=== PATIENT | male | born 1945 | race Caucasian/White ===

== ENCOUNTER 2016-09-25 03:52 | Inpatient (IN) ==
[2016-09-25] MEDS ORDERED: XYLOCAINE 2%/EPI 1:100,000 ONE (04:04)
[2016-09-25] MEDS ORDERED: XYLOCAINE-MPF 2% INJ ONE (04:43)
[2016-09-25] MEDS ORDERED: XYLOCAINE 1% INJ ONE (04:45)
[2016-09-25] MEDS ORDERED: XYLOCAINE 1% ONE (04:47)
[2016-09-25] MEDS ORDERED: MORPHINE IV ONE (05:22)
[2016-09-25] MEDS ORDERED: ZOFRAN IV ONE (05:23)
[2016-09-25] MEDS ORDERED: NS 1,000 ML IV SCH (05:27)
[2016-09-25] MEDS ORDERED: KEFZOL 1 GM/D5W 1 GM/50 ML IVPB IV ONE (05:29)
--- NOTE | 2016-09-25 05:34 | EKG Report ---
Test Performed on : 09/25/2016 05:25:20 AM Test Reason : CP Blood Pressure : / mmHG Vent. Rate : 107 BPM Atrial Rate : 117 BPM P-R Int : 000 ms QRS Dur : 090 ms QT Int : 318 ms P-R-T Axes : 000 -03 234 degrees QTc Int : 424 ms Undetermined rhythm Inferior infarct , age undetermined Possible Anterior infarct , age undetermined Abnormal ECG No previous ECGs available Unconfirmed Result
[2016-09-25 05:59] LABS: MANUAL DIFF NEEDED? NO
[2016-09-25 06:11] LABS: BASO% 0.5 % (0.0-0.8); EOS# 0.06 X1000 (0.0-0.7); EOS% 0.9 % (0.0-10.0); HEMATOCRIT 32.8 % (42.0-52.0); HEMOGLOBIN 10.6 g/dL (14.0-18.0); IMM GRAN# 0.07 X1000 (0.0-0.04); IMM GRAN% 1.1 % (0.0-0.5); LYMPH# 0.79 X1000 (1.2-3.4); LYMPH% 12.3 % (20.5-51.1); MCH 31.1 PG (27-31); MCHC 32.3 g/dL (33-37); MCV 96.2 FL (81-99); MONO# 0.48 X1000 (0.11-0.59); MONO% 7.5 % (1.7-9.3); NEUT% 77.7 % (42.2-75.2); PLT 272 X1000 (130-400); RBC 3.41 XMIL (4.7-6.1)
[2016-09-25 06:30] LABS: AGAP 9; ALBUMIN 3.5 g/dL (3.5-5.0); ALKALINE PHOSPHATASE 80 U/L (32-122); BUN 18 mg/dL (8-22); CALCIUM 8.8 mg/dL (8.8-10.2); CHLORIDE 108 mmol/L (98-107); COSMO 285; GOT 20 U/L (10-34); GPT 25 U/L (10-44); POTASSIUM 3.9 mmol/L (3.5-5.1); SODIUM 141 mmol/L (136-145); TCO2 24 mmol/L (25-35); TOTAL BILIRUBIN 0.52 mg/dL (0.20-1.00); TOTAL PROTEIN 6.1 g/dL (6.3-8.3)
--- NOTE | 2016-09-25 07:37 | Diag Imaging Result Doc PS360 ---
KNEE 3 VIEWS RIGHT - 09/25/2016 INDICATION: fall TECHNIQUE: COMPARISON: None FINDINGS: No definite fractures. There is moderate vascular calcification of the popliteal artery and its branches compatible with peripheral arterial disease. No joint effusion. There is some degenerative narrowing of the medial and patellofemoral joint spaces. There is also some mild prepatellar soft tissue swelling. IMPRESSION: Nonspecific findings. Electronically signed by Jerman Desia 09/25/2016 7:35 AM
--- NOTE | 2016-09-25 08:32 | PROVIDER DOCUMENTATION ---
HPI-Musculoskeletal Pain/Inj - GENERAL Chief Complaint: Fall Stated Complaint: FALL/ EAR INJURY Time Seen by Provider: 09/25/16 06:45 Source: patient, EMS - HX OF PRESENT ILLNESS-MUSKULOSKELTAL Nature of Presenting Problem: 71 yo WM apparently fell at, maybe a syncopal episode. He is a poor historian but I understand lives with his who is disabled and his daughter lives next door. Quality of Pain: reports: sharp, throbbing Severity in ED: moderate Onset/Duration: just prior to arrival Timing: still present Modifying Factors: improves with: nothing Any recent injury?: Yes Locality of Occurance: Home Similar Symptoms Previously?: No Recently seen or treated by another doctor?: No - FALL INJURY Location of Pain/Injury: reports: head, lower extremity Pain Radiation: reports: no radiation, arm(s) Reason for Fall: reports: fainted Symptoms prior to fall:: reports: none Loss of Consciousness: dazed Injury Associated Symptoms: denies: shortness of breath, sensory/motor loss, snap/crack/pop sensation - LOWER EXTREMITY PAIN/INJURY Lower Extremities Pain: knee: right (very painful) Context / Method of Injury: reports: fell Review of Systems - Adult - REVIEW OF SYSTEMS - ADULT Constitutional: reports: no symptoms reported Eyes: reports: no symptoms reported Ears, Nose, Mouth & Throat: reports: see HPI, ear discharge, ear pain Cardiovascular: reports: no symptoms reported, other (known to have) Respiratory: reports: no symptoms reported Gastrointestinal: reports: no symptoms reported Genitourinary: reports: no symptoms reported Musculoskeletal: reports: see HPI Integumentary: reports: see HPI Psychiatric: reports: no symptoms reported Past History - Adult - PAST MEDICAL HISTORY-ADULT Review of Records: reports: Old Records Reviewed, Nursing Assessment Review, Medications Reviewed Physical Exam-Injury Related - Physical Exam-Injury Related Initial Vital Signs Reviewed: Yes General Appearance: alert, mild distress, thin Eyes: PERRL/EOMI Head, Ears, Nose, Mouth & Throat: pharynx normal, hearing deficit, other (right ear with multiple lacerations and arterial bleed whic h was controlled with epinephrine and pressure followed by suturing). negative: normocephalic/ atraumatic, angioedema, dental decay Neck: non-tender, full range of motion, supple Respiratory: chest non-tender, lungs clear, normal breath sounds Cardiovascular: normal peripheral pulses, no JVD, irregularly irregular. negative: no edema Abdominal Exam: normal bowel sounds, non tender, soft Male Genitalia: deferred Rectal Exam: deferred Lymphatic: no adenopathy Extremity: no calf tenderness, deformity, joint effusion, swelling. negative: normal range of motion Integumentary: contusion(s), laceration Neurologic: grossly normal - Glascow Coma Score [place] Total: 15 Progress - PLAN OF CARE/RESULTS Progress/Plan/Lab Results: Vital Signs - 8 hr 09/25/16 06:53 09/25/16 10:06 Temperature 97.6 F Pulse Rate 86 99 H Respiratory Rate 18 20 Blood Pressure 152/104 149/77 O2 Sat by Pulse Oximetry 98 97 Laboratory Results - last 24 hr 09/25/16 09/25/16 09/25/16 05:50 05:50 05:50 WBC 6.41 RBC 3.41 L Hgb 10.6 L Hct 32.8 L MCV 96.2 MCH 31.1 H MCHC 32.3 L RDW Std Deviation 15.4 H Plt Count 272 MPV 11.0 H Immature Gran % (Auto) 1.1 H Neut % (Auto) 77.7 H Lymph % (Auto) 12.3 L [place] % (Auto) 7.5 Eos % (Auto) 0.9 Baso % (Auto) 0.5 Immature Gran # (Auto) 0.07 H Neut # (Auto) 4.98 Lymph # (Auto) 0.79 L [place] # (Auto) 0.48 Eos # (Auto) 0.06 Baso # (Auto) 0.03 Sodium 141 Potassium 3.9 Chloride 108 H Carbon Dioxide 24 L Anion Gap 9 BUN 18 Creatinine 0.7 Estimated GFR/1.73 m2 > 60 BUN/Creatinine Ratio 26 Glucose 123 H Calculated Osmolality 285 Calcium 8.8 Total Bilirubin 0.52 AST 20 ALT 25 Alkaline Phosphatase 80 Troponin T < 0.010 Total Protein 6.1 L Albumin 3.5 Globulin 2.6 Albumin/Globulin Ratio 1.3 Orders Category Date Time Status Knee Immobilizer .right Care 09/25/16 05:28 Active HEAD W/O CONTRAST [CT] Stat Exams 09/25/16 08:04 Completed KNEE 3 VIEWS RIGHT [RAD] Stat Exams 09/25/16 04:52 Completed CBC WITH ELECTRONIC DIFF [HEME] Stat Lab 09/25/16 05:50 Completed COMPREHENSIVE METABOLIC PANEL [CHEM] Stat Lab 09/25/16 05:50 Completed TROPONIN T Stat Lab 09/25/16 05:50 Completed 0.9% Sodium Chloride Inj [Ns] 1,000 ml Med 09/25/16 05:27 Active IV 200 mls/hr Cefazolin 1 gm/D5w [Kefzol 1 gm/D5w] Med 09/25/16 05:29 Discontinued 1 gm in 50 ml IV NOW Cocaine 4% Topical Soln Med 09/25/16 10:15 Discontinued 4 ml TOP NOW ONE Lidocaine 1% [Xylocaine 1%] Med 09/25/16 04:47 Discontinued 20 ml .ROUTE .STK-MED ONE Lidocaine 1% [Xylocaine 1%] Med 09/25/16 04:45 Discontinued 20 ml INJ NOW ONE Lidocaine 2% Pf [Xylocaine-Mpf 2%] Med 09/25/16 04:43 Discontinued 5 ml INJ NOW ONE Lidocaine 2%/Epi 1:100,000 [Xylocaine 2%/Epi 1:100,000] Med 09/25/16 04:04 Discontinued 20 ml .ROUTE .STK-MED ONE Morphine Med 09/25/16 05:22 Discontinued 4 mg IV NOW ONE Ondansetron [Zofran] Med 09/25/16 05:23 Discontinued 4 mg IV NOW ONE EKG [EKG] Stat Ther 09/25/16 05:27 Draft Much improved , awaiting rifle case repairer and reevalluation of ear bleeding Result Diagrams: 09/25/16 05:50 09/25/16 05:50 - REASSESSMENT Reassessment #1 Time Reassessed: 11:26 Status: other (followed labored and serial efforts to achieve a satisactory agreement between pt and family as well as the showcase trimmer and long term care social worker, the patient agreed to admission for planned transfer to rehab and likely eventual long-term residential care.) - CHANGE OF SHIFT REPORT (ED Provider) Report Given and Care Transferred to:: Dr Johnson Items Pending: CT/MRI Results, Other (rifle case repairer) Procedures - LACERATION/WOUND REPAIR/FB Right Ear Wound Location: Other: 3 cm Wound's Depth, Shape: superficial Wound Explored/Foreign Body: contaminated moderately, no foreign body found Irrigated with Saline?: Yes Prepped with: Hibiclens Anesthetic: 2%, Lidocaine/Xylocaine Volume of Anesthetic (ml's): 7 Wound Debrided: minimal Wound Repaired with: Sutures Suture Size/Type: 5.0, Nylon Number of Sutures: 11 Number Deep Layer Sutures: 0 Sterile Dressing Applied?: Yes Post Procedure Neurovascular Exam: Abnormal (I was asked to re-evaluate the prior repair of the auricle of the pt' R ear as the nurse noted cont'd saturation of a pressure dressing (Coban turban) w/ blood X 2 changes: upon inspection w/ headlamp and Henley suction, there was a small lac at the junction of the inferior andrey with the antitragus. I applied a 4% cocaine impregnated cotton pack to the area of bleeding and held pressure for a minute, resulting in apparent excellent hemostasis. I removed the first such 'pack' and repeated the procedure with a 2nd otherwise identical pack, and another turban was placed atop this area. we will observe for persistence of the current satisfactory hemostasis.) Procedure Comment: oozing continues Departure - Departure Date of Disposition Decision: 09/25/16 Time of Disposition Decision: 12:11 DIAGNOSIS: Closed head injury, Laceration of right pinna, Frequent falls Disposition: ADMITTED INPATIENT 09 Certified Medical Emergency: Emergent Condition: Fair Referrals and Follow-Ups: None,PCP [Clinical Support] - - Critical Care Note This patient required my direct & personal management of CC.: No
--- NOTE | 2016-09-25 08:41 | Diag Imaging Result Doc PS360 ---
EXAM: HEAD W/O CONTRAST TECHNIQUE: INDICATION: fall COMPARISON: None. FINDINGS: There is diffuse brain atrophy with ventriculomegaly. There is mild patchy periventricular low-attenuation suggesting mild microangiopathy. There is no definite acute infarct given the limited sensitivity of CT versus MRI. There is no discrete intracranial mass, mass effect, or intracranial hemorrhage. The surrounding soft tissues and bony structures are essentially unremarkable. IMPRESSION: Chronic appearing intracranial changes as described. No definite acute intracranial pathology. Electronically signed by Ziggy Cooper 09/25/2016 8:39 AM
[2016-09-25] MEDS ORDERED: COCAINE 4% TOP ONE (10:15)
--- NOTE | 2016-09-25 14:19 | HISTORY AND PHYSICAL ---
PRIMARY CARE PROVIDER: Dr. Nahed Delaney. CHIEF COMPLAINT: Fall. HISTORY OF PRESENT ILLNESS: Mr. Jorge Fitzpatrick is an ill-appearing 71-year- old male. He is currently in no acute distress. He has a medical history of chronic atrial fibrillation on aspirin. He has had also several TIA's, hypertension, GERD and venous stasis, who apparently was found down on the floor at home by his daughter. When questioning the patient, he states that he passed out. He had no sensation that he was going to pass out; he just woke up with blood. When he presented to the ER, he has an atrial fibrillation rhythm with a tachycardic rate and a head CT that was performed which revealed chronic changes and no acute findings. He did have a right ear laceration that was sutured. Apparently he has had several falls in the past. The patient states they had one about 3 days ago where he had passed out. According to family, in July he was at [facility] and returned home with home health. Vital signs have been stable here. Will admit for further workup of syncopal spell. PAST MEDICAL HISTORY: 1. Chronic atrial fibrillation. 2. Hypertension. 3. GERD. 4. Venous stasis with lower extremity swelling. 5. Several TIA's. SURGICAL HISTORY: Bilateral wrist surgeries, jaw surgery and polypectomy. SOCIAL HISTORY: He was a 3 [id number] smoker for 10-15 years, quit in the early 1980s. Denies alcohol and illicit drug use. He lives at home with his and his daughter lives next door. He uses a walker at home. He and his moved to [place] approximately 2 years ago. FAMILY HISTORY: None. REVIEW OF SYSTEMS: Fourteen point review of systems were complete and all were negative, except for those mentioned above in the HPI. He did state that he has a hard time moving his right leg and has more swelling. ALLERGIES: No known drug allergies. HOME MEDICATIONS: Lopressor 25 mg p.o. daily. PHYSICAL EXAMINATION: VITAL SIGNS: Temperature is 97.5 degrees, heart rate 99 irregular, blood pressure 149/77, saturation 97% on room air with a respiratory rate of 20. The patient is 6 foot inches tall, 212 pounds. BMI 28.8. GENERAL: Mr. Jorge Fitzpatrick is a 71-year-old male. He is in no acute distress and he is answering most questions appropriately, but is slow responding. HEENT: Right earlobe laceration approximately 3 cm in length, now with sutures and hemostasis has been achieved. Pupils are equal, reactive. Extraocular movements intact. Mucous membranes are dry. NECK: No JVD or carotid bruits noted. CARDIOVASCULAR: Irregularly irregular rate and rhythm. No rubs, gallops, murmurs. PULMONARY: Clear to auscultation. Bilateral breath sounds. No accessory muscle use or work of breathing noted. GI: Soft, nontender, nondistended. Positive bowel sounds x4. EXTREMITIES: Bilateral lower extremity edema about +2. He has +2 to +3 dorsalis pedal pulses and + 2 radial pulses. NEUROLOGIC: Oriented x3. He moved all extremities equally, but weak. He is 4/ 5 in strength. SKIN: Warm, dry, intact except for the right earlobe laceration and abrasion on the right scalp. He also has bilateral knee abrasions. LABORATORY DATA: White blood cells 6000, hemoglobin 10, hematocrit 32, platelet count 272. Sodium 141, potassium 3.9, BUN 18, creatinine 0.7, glucose 123, bilirubin 0.52. AST 20, ALT 25, troponin less than 0.01. Protein 6.1. IMAGING: Head CT: Diffuse brain atrophy with ventriculomegaly. There is mild patchy ventricular low attenuation suggesting mild micro and ángel angiopathy. There is no definite acute infarct given the limited CT versus MRI. There is no discrete intracranial mass, mass effect or intracranial hemorrhage. The surrounding soft tissues and bony structures are essentially unremarkable. EKG is said to have undetermined rhythm, but reviewing it looks like atrial fibrillation with a rate of 107 and QTc is 424. X-ray of the right knee shows peripheral arterial disease. ASSESSMENT AND PLAN: 1. Syncope. Will do echocardiogram and carotid ultrasound. Will do orthostatics every 12 hours and consult cardiology. 2. Atrial fibrillation with mild rapid ventricular response, currently not on anticoagulation. It appears that he is on a beta brittany at home. Cardiology will be following. 3. Hypertension. He is hypertensive. Will likely need to resume his beta brittany. 4. Gastroesophageal reflux disease. Will start a proton pump inhibitor. 5. Lower extremity venous stasis versus peripheral arterial disease. We will also get lower extremity venous ultrasound to rule out deep vein thromboses. 6. History of several transient ischemic attacks per the patient. He has been on aspirin therapy at home. 7. Deep venous thrombosis prophylaxis. Sequential compression devices and thromboembolic devices. 8. Right ear laceration stable at this time. Will leave open to air. Clean with sterile water and antibacterial soap. 9. Disuse myopathy, generalized weakness. Physical therapy has been ordered. Dictated by VIRGINIA Murry for Ariel Loaiza MD cc: VIRGINIA Murry MD pt developed afib with rvr, iv cardizem initiated , pt going to [facility], will follow closely [facility] MTDD
[2016-09-25] MEDS ORDERED: ZOFRAN IV PRN (14:39)
[2016-09-25] MEDS ORDERED: NS 1,000 ML IV PRN (14:39)
[2016-09-25] MEDS ORDERED: CARDIZEM IV ONE (14:44)
--- NOTE | 2016-09-25 15:13 | Diag Imaging Result Doc PS360 ---
EXAM: CHEST-PORTABLE HISTORY: dyspnea, cough TECHNIQUE: AP portable erect at 1510 COMMENT: There is ill-defined opacity obscuring the left heart border. There are no previous studies. IMPRESSION: Lingular pneumonia versus atelectasis. Electronically signed by Trevon Nguyen 09/25/2016 3:10 PM
[2016-09-25] MEDS: LANOXIN IV SCH ×2 (16:00→17:33)
[2016-09-25] MEDS: CARDIZEM 100 MG/NS 100 MG/100 ML IVPB IV SCH (16:29)
[2016-09-25] MEDS: TYLENOL PO PRN (16:38)
[2016-09-25 16:43] LABS: URINE SOURCE VOIDED
[2016-09-25 17:53] LABS: URINE MICRO REVIEW NEEDED? NO
[2016-09-25 17:56] LABS: BILIRUBIN URINE NEGATIVE (NEGATIVE); BLOOD URINE NEGATIVE (NEGATIVE); COLOR YELLOW; GLUCOSE URINE NEGATIVE (NEGATIVE); LEUKOCYTES URINE NEGATIVE (NEGATIVE); NITRITE URINE NEGATIVE (NEGATIVE); PH URINE 5.5; PROTEIN URINE NEGATIVE (NEGATIVE); SP GRAVITY URINE 1.015; TURBIDITY URINE CLEAR (CLEAR); UR EPITHELIAL CELLS <10 /HPF (<10); URINE BACTERIA NEGATIVE /HPF; URINE RBC <10 /HPF (<10); URINE WBC <10 /HPF (<10); UROBILINOGEN URINE NORMAL (NORMAL)
[2016-09-26] MEDS: CARDIZEM 100 MG/NS 100 MG/100 ML IVPB IV SCH ×2 (00:47→17:57)
[2016-09-26] MEDS: TYLENOL PO PRN ×2 (00:58→08:22)
[2016-09-26 05:15] LABS: MANUAL DIFF NEEDED? NO
[2016-09-26 05:29] LABS: BASO% 0.6 % (0.0-0.8); EOS# 0.13 X1000 (0.0-0.7); EOS% 2.4 % (0.0-10.0); HEMATOCRIT 29.4 % (42.0-52.0); HEMOGLOBIN 9.3 g/dL (14.0-18.0); IMM GRAN# 0.05 X1000 (0.0-0.04); IMM GRAN% 0.9 % (0.0-0.5); LYMPH# 0.85 X1000 (1.2-3.4); LYMPH% 15.9 % (20.5-51.1); MCH 30.5 PG (27-31); MCHC 31.6 g/dL (33-37); MCV 96.4 FL (81-99); MONO% 9.3 % (1.7-9.3); MPV 11.4 FL (7.4-10.4); NEUT% 70.9 % (42.2-75.2); PLT 254 X1000 (130-400); RBC 3.05 XMIL (4.7-6.1)
[2016-09-26 05:55] LABS: INR 1.07; PROTIME 11.3 Seconds (9.2-11.7); PTT 30.1 Seconds (22.0-36.0)
[2016-09-26 06:05] LABS: AGAP 7; ALBUMIN 3.2 g/dL (3.5-5.0); ALKALINE PHOSPHATASE 72 U/L (32-122); BUN 6 mg/dL (8-22); CALCIUM 8.7 mg/dL (8.8-10.2); CHLORIDE 108 mmol/L (98-107); COSMO 281; GOT 16 U/L (10-34); GPT 21 U/L (10-44); MAGNESIUM 1.8 mg/dL (1.5-2.7); POTASSIUM 3.7 mmol/L (3.5-5.1); SODIUM 142 mmol/L (136-145); TCO2 27 mmol/L (25-35); TOTAL BILIRUBIN 0.66 mg/dL (0.20-1.00); TOTAL PROTEIN 5.7 g/dL (6.3-8.3)
[2016-09-26] MEDS: PRILOSEC PO SCH (06:11)
--- NOTE | 2016-09-26 06:12 | EKG Report ---
Test Performed on : 09/26/2016 05:31:54 AM Test Reason : afib Blood Pressure : / mmHG Vent. Rate : 084 BPM Atrial Rate : 101 BPM P-R Int : 000 ms QRS Dur : 078 ms QT Int : 376 ms P-R-T Axes : 000 007 -22 degrees QTc Int : 444 ms Atrial fibrillation. with a competing junctional pacemaker. with premature ventricular or aberrantly conducted complexes. Nonspecific T wave abnormality Abnormal ECG When compared with ECG of 25-SEP-2016 13:15, (Unconfirmed) Vent. rate has decreased BY 49 BPM Confirmed by Chirag Chamberlain MD ([id number]) on 09/26/2016 1:02:44 PM
--- NOTE | 2016-09-26 10:54 | PROGRESS NOTE ---
DATE: 09/26/2016 SUBJECTIVE: Patient has no focal complaints. OBJECTIVE: Blood pressure 134/76, heart rate of 95, respiratory rate 18, temperature 97.8 degrees, 97% on 2 L. Cardiovascular: Regular rate and rhythm. Pulmonary: Bilateral breath sounds clear to auscultation. GI was soft, nontender, nondistended. Bowel sounds are positive. His right knee is swollen. LABORATORY DATA: Hemoglobin and hematocrit 9 and 29, white count 5, platelets 254,000. Coags okay. Basic was negative. IMPRESSION: Briefly, this is a 71-year-old male presenting with recurrent fall, syncope, and atrial fibrillation with rapid ventricular response.Problems: 1. Atrial fibrillation with rapid ventricular response. It appears to be rate controlled on cardiology. He will need anticoagulation retirement. He has got significant bruising and bleeding in his left knee, so we are holding on that for right now. 2. Hypertension appears to be stable. 3. Transient ischemic attack. He is on aspirin therapy. 4. Questionable pneumonia in left lower lobe. We will repeat his chest x-ray. Continue incentive spirometry and follow. DISPOSITION: Pending his clinical course. Possibly out of CIC today if he is stable off his Cardizem drip. cc: Ariel Loaiza MD
--- NOTE | 2016-09-26 11:13 | CONSULTATION ---
DATE OF CONSULTATION: 09/26/2016 REQUESTING PHYSICIAN: Hospitalist service. REASON FOR CONSULTATION: Patient with syncope, atrial fibrillation. HISTORY: Mr. Fitzpatrick is a 71-year-old male who has moved to the [place] area because of need for closer care by his daughter. The patient has suffered a syncopal episode at home and was brought to the hospital because of that. He suffered an ear laceration, and this has been treated in the emergency room. The patient denies having any chest pain, palpitations, shortness of breath. He says that he is unsteady on his feet, and he has suffered previous falls and also syncopal episodes. PAST HISTORY: Positive for hypertension. He has a history of atrial fibrillation. He apparently has suffered transient ischemic attacks. Gastric reflux. SURGICAL HISTORY: He has had bilateral wrist surgeries, jaw surgery, and polypectomy. SOCIAL HISTORY: He is , retired. He lives with his . However, she seems to have advanced dementia. Daughter lives next door. The patient has been a smoker of 3 packs a day for 15 years and quit in 1979. FAMILY HISTORY: He does not have any significant cardiac history in his family. ALLERGIES: Negative. HOME MEDICATIONS: At the time of presentation are metoprolol 25 daily and aspirin 81 mg daily. REVIEW OF SYSTEMS: Beyond what I have already reported is unremarkable. IMAGING: In the emergency room department, they did a head CT on him that shows chronic-appearing intracranial changes with diffuse brain atrophy, ventriculomegaly. The patient had a chest x-ray that showed possible lingular pneumonia versus atelectasis. BLOOD WORK: His blood work showed normal white count, low hemoglobin at 10.6 with normal MCV and slightly elevated RDW. Platelet count is normal. PTT is normal. Sodium, potassium normal. BUN and creatinine normal. Troponin normal. ProBNP was about 6 times baseline, 1333, normal is 229 for his age. Albumin is low at 3.2. PHYSICAL EXAMINATION: Vital signs: Blood pressure was 121/70, temperature 98.1. His pulse has slowed down from 127 to 95. His weight is 214 pounds. General: He is awake, arousable. He has bruises on the knees. He has a laceration on the ear that has been sutured and treated. His scalp is unremarkable otherwise. No deformities in the head. HEENT: Unremarkable. The patient is somewhat sluggish to respond. He seems to be oriented to place and person, not quite to time. Neck: Neck veins are not distended. No cervical bruits. Chest: Symmetrical breath sounds. I do not hear any rales. Cardiac: Heart sounds are slightly irregular. I do not hear any gallop or murmur. Abdomen: Soft. There are no masses or hepatomegaly. Extremities: Palpable posterior tibialis pulses. There is no edema. Neurological: He is somewhat sluggish. Some nonspecific tremor. Some stiffness in general. EKG: His EKG showed atrial fibrillation with occasional PVCs Rate is controlled. Nonspecific T wave flattening. IMPRESSION: 1. Patient who presents with recurrent syncope. 2. Patient with chronic atrial fibrillation, rapid response. This is improved with Cardizem. 3. Hypertension. 4. History of TIAs in the past. RECOMMENDATION: We will review the echocardiogram that has been done this morning. We will consider a neurology consultation. The patient may have high-pressure hydrocephalus. Further advice will be forthcoming. Thank you for the opportunity to participate in his evaluation. cc: Ruben Narvaez MD
[2016-09-26] MEDS: LOVENOX SUBQ SCH (11:48)
[2016-09-26] MEDS: NORCO-7.5 PO PRN ×2 (11:48→21:01)
[2016-09-26] MEDS: CARDIZEM PO SCH ×3 (11:48→21:01)
--- NOTE | 2016-09-26 12:49 | ECHO REPORT ---
ORDER DATE: 09/25/2016 MEASUREMENTS: 1. Left ventricular end-diastolic diameter 5.1 and 3.0. 2. Posterior wall thickness 1.3. 3. Septal thickness 1.3. 4. Left atrium 5.3. 5. Aortic root 3.6. SUMMARY: 1. Fair quality study. 2. Aortic valve is trileaflet and opens normally on 2-dimensional images. Mild mitral calcification is demonstrated. There is mild mitral regurgitation. Tricuspid and pulmonic valves are without structural abnormality with mild tricuspid regurgitation and mild pulmonic insufficiency. Estimated systolic PA pressure by Doppler is 20-25 mmHg. The aortic root is normal in size. 3. Normal left ventricular chamber size with mild concentric left hypertrophy is demonstrated. Estimated left ejection fraction appears to be at least 55%. No regional wall motion abnormality is evident. [id number] biatrial enlargement is demonstrated. Right ventricle is normal in size with normal right ventricular systolic function. 4. No pericardial effusion. 5. Appearance of inferior vena cava suggests normal central venous pressure. 6. Atrial fibrillation during the study. CONCLUSIONS: 1. Mild mitral regurgitation. 2. Mild tricuspid regurgitation with normal systolic PA pressure by Doppler. 3. Mild concentric left hypertrophy with estimated left ejection fraction at least 55%. 4. [id number] biatrial enlargement. 5. Atrial fibrillation. cc: MD Livier Esparza CRNP
--- NOTE | 2016-09-26 13:40 | Diag Imaging Result Doc PS360 ---
EXAM: CHEST-2 VIEWS HISTORY: hypoxia TECHNIQUE: COMPARISON: 09/25/2016 FINDINGS: The lungs are well expanded. Persistent tiny lingular infiltrate versus atelectasis. Right lung remains clear. Heart is borderline mildly prominent. No pleural effusions. IMPRESSION: Small lingular infiltrate versus atelectasis. Electronically signed by Car Phillips 09/26/2016 1:38 PM
--- NOTE | 2016-09-26 13:45 | Diag Imaging Result Doc PS360 ---
EXAM: MRI BRAIN W/O CONTRAST HISTORY: ataxia, apraxia, falls, syncope, right hemiparesis TECHNIQUE: Axial, sagittal, and coronal images obtained COMPARISON: CT from 09/25/2016 FINDINGS: No recent infarct. There is atrophy with chronic microvascular ischemic changes. Mild ventricular prominence. No mass or midline shift. No epidural or subdural fluid collection. IMPRESSION: Atrophy with chronic microvascular ischemic changes, but no recent infarct. Electronically signed by Car Phillips 09/26/2016 1:43 PM
--- NOTE | 2016-09-26 14:00 | CONSULTATION ---
DATE OF CONSULTATION: 09/26/2016 Mr. Fitzpatrick is 71 years old. He reports recent stumbling backward, walking backward and falling. He struck his head and had ear laceration which was closed. He believes he might have lost consciousness for just an instant but there was not protracted loss of consciousness. He reports developing some right-sided weakness about 5 years ago and that has been present since then, not fluctuating, not improving or deteriorating. He believes this was a "mini stroke", but he is not certain about details. He began to have unsteady gait with a tendency to stumble backward, to walk backwards, to bump into things behind him. He believes this started about 3 years ago and has been present since then, some days much worse than others. He has fallen about 6 times, by his report. Falls had not been associated with altered consciousness before yesterday. He has been able to get up without assistance on a few occasions when he did not have help. Falls were not associated with increased right-sided weakness or other new neurologic deficit. Falls were not associated with incontinence, by his report. One of his previous falls was also associated with scalp laceration. He has never had more serious injury associated with these falls. He began taking medicine to manage atrial fibrillation several years ago. He was switched from warfarin to daily aspirin within the last month or so. He had started metoprolol a few years ago and, in retrospect, he believes starting metoprolol roughly coincides with the time that he began to stumble. According to the hospital chart here, his only current medicines are aspirin and metoprolol. There is past history of atrial fibrillation, hypertension, GERD. Workup here includes noncontrast CT of the head showing prominent atrophy with ventriculomegaly and also prominent cortical atrophy. There were the typical chronic white matter ischemic changes. I do not see evidence of discrete infarction. Lab work showed slightly elevated blood sugar. ProBNP was 1333. He has been afebrile. He had heart rate recorded once 45, once 68, others 80s to 110s. He has had postural blood pressure checks with moderate systolic blood pressure drop on sitting or standing from supine position but not definitely remarkable. He has lived most of his life [place] and [place]. He has been in this area for recent years. I do not find any old record in this hospital chart. On exam, Mr. Fitzpatrick is awake, alert, attentive and appropriate. He seems a little bit hard of hearing but communicated very well. His voice is soft but not parkinsonian. Speech is not dysarthric. Language function is intact on bedside testing. Recent and remote memory are good. He scored 25 of 30 on bedside mini mental status exam. This score may not be completely valid because there was a good bit of commotion in the hallway during the interview. He registered 3 items easily and then could recall 2 of 3 items at 10 minutes. He did not pick the 3rd item from a multiple choice list. He interpreted a simile correctly but did not interpret a metaphor. He was able to name the President but could not discuss any recent news. He missed the day of the week by 1. He missed the day of the month by several days. He did not know the name of this hospital but he did know the name of the town and state. He has full visual holden tested by confrontational finger counting. His extraocular movements appear full laterally with slightly diminished upgaze typical for age. Pupils react to light (he reports having horizontal diplopia chronically since cataract procedure some years ago, but I could not document definite gaze palsy or extraocular movement abnormality. He did not report diplopia or other vision change with cover/uncover testing and he did not report diplopia with gaze ahead, gaze left or gaze right). Facial motility is diminished bilaterally. Gag is intact. Tongue is midline. Hearing is fair. Shoulder shrug is equal. Strength is normal in the left limbs. I can overcome the right deltoid, 4/5, iliopsoas 4+/5. Tone is a little bit increased in the right arm. He did rapid alternating movements well with both hands. He did well on finger-to- nose testing bilaterally. He reports diminished pinprick appreciation over the right lower leg compared to the left without distinct margins. He reports equal pinprick appreciation over the hands and over the face. Proprioception is normal at the great toe MTP joint bilaterally. Reflexes are absent at the ankles, 2+ at the left knee, uncertain at the right knee. Right knee is swollen and tender and he could not tolerate vigorous testing of right patellar reflex. His gait is wide-based, slightly ataxic. He had trouble placing his feet properly for heel-to-toe tandem walking. He did not demonstrate definite apraxia in the limited gait exam available, hindered by the IV pole, hospital bed and other obstacles. Romberg is absent. IMPRESSION: 1. His history sounds like apractic gait with retropulsion, stumbling backward and falling. He reports this has happened many times without falling and he has fallen several times. He does not have any other parkinsonian features. 2. Right hemiparesis. He reports this is chronic. 3. Horizontal diplopia. He reports this is chronic but is not present now. 4. Uncertain right knee reflex and possible diminished sensation distally in the right leg. He might have a peripheral neuropathy there but I do not think that explains his recent gait difficulty and I do not think that problem needs urgent attention. I will order a brain MRI to see if we can find evidence of an old left hemisphere infarction to account for his mild right hemiparesis. We also need to evaluate the brainstem in light of his reported diplopia and unsteady gait. He has had MRI before and had no problems tolerating that in the past. Other workup is in progress including carotid ultrasound. I am not certain about the reasons for recent decision to stop anticoagulation and switch to antiplatelet medicine. Certainly, his unsteady gait and falling is a contraindication to full anticoagulation. Thanks for asking me to see Mr. Fitzpatrick. cc: MD KARAN Glass III
[2016-09-27] MEDS: CARDIZEM PO SCH ×4 (02:44→20:38)
[2016-09-27 05:54] LABS: HEMATOCRIT 28.6 % (42.0-52.0); HEMOGLOBIN 9.1 g/dL (14.0-18.0); MCH 31.7 PG (27-31); MCHC 31.8 g/dL (33-37); MCV 99.7 FL (81-99); MPV 10.7 FL (7.4-10.4); RBC 2.87 XMIL (4.7-6.1)
[2016-09-27 06:09] LABS: AGAP 9; BUN 8 mg/dL (8-22); CALCIUM 8.3 mg/dL (8.8-10.2); CHLORIDE 107 mmol/L (98-107); COSMO 286; POTASSIUM 4.1 mmol/L (3.5-5.1); SODIUM 144 mmol/L (136-145); TCO2 28 mmol/L (25-35)
[2016-09-27] MEDS: PRILOSEC PO SCH (06:37)
[2016-09-27] MEDS: NORCO-7.5 PO PRN (07:20)
[2016-09-27] MEDS: LOVENOX SUBQ SCH (11:54)
[2016-09-27] MEDS: TYLENOL PO PRN (11:54)
--- NOTE | 2016-09-27 13:44 | PROGRESS NOTE ---
DATE: 09/27/2016 SUBJECTIVE: The patient has no focal complaints except the pain is still not completely controlled. OBJECTIVE: Vital signs: Blood pressure 117/61, heart rate 72, respiratory rate 72, temperature 97.9 degrees, 97% on room air. Cardiovascular: Irregular irregular. Pulmonary: Clear to auscultation bilaterally. GI: Soft, nontender, nondistended. Bowel sounds are positive. LABORATORY DATA: Hemoglobin and hematocrit is 9 and 28, white count 5, MCV 99, platelets 254,000. Coagulations okay. Basic is okay. Potassium 4.1. PROBLEM LIST: 1. Atrial fibrillation with rapid ventricular response. He seems to be rate controlled. I do think his CHADS2-VASc 2 is greater than 3 or at least 3 so he will qualify for long time anticoagulation, I am just holding it right now because of his recent hematomas and laceration of his ear but I would consider doing that alf of course at the discretion of cardiology. He does have frequent falls but I do not think this should preclude him from anticoagulation, not sure his frequent falls may not be related to atrial fibrillation and now that is controlled that may have improved. 2. Ataxia, diplopia. He had a MRI done yesterday which was negative for cerebrovascular accident. He is at risk for transient ischemic attacks which he has had numerous episodes of. We will initiate at least aspirin therapy and again I think he will need long-term anticoagulation once we feel it is safe enough to anticoagulate perhaps in about 7 days or within 7 days. 3. Anemia. Looks like it is macrocytic. Will check B12, folate levels and monitor. DISPOSITION: He may need inpatient rehab. We are pursuing PT consult. I think he is stable enough to go the floor. cc: Ariel Loaiza MD
[2016-09-27] MEDS: NORCO-10 PO PRN ×2 (14:23→20:38)
[2016-09-27] MEDS: ASPIRIN EC PO SCH (14:23)
--- NOTE | 2016-09-27 20:23 | PROGRESS NOTE ---
DATE: 09/27/2016 SUBJECTIVE: Patient continues without chest discomfort or dyspnea. He has no palpitations. OBJECTIVE: Vital Signs: Blood pressure 118/60, heart rate 80 and irregular. Neck: There is no significant jugular venous distention. Chest: Clear to auscultation. Cardiac Exam: Reveals an irregular rate and rhythm. No evidence of peripheral edema. DATA: Echocardiography indicates mild mitral regurgitation, mild concentric left hypertrophy with estimated left ejection fraction at least 55% and mild moderate biatrial enlargement. IMPRESSION: 1. Recurrent syncope with associated falls. 2. Chronic atrial fibrillation. 3. Hypertension. 4. Prior transient ischemic attacks in the past. RECOMMENDATIONS: 1. Continue to monitor on telemetry. 2. Consider ambulatory ECG monitoring 30 day event recorder as outpatient. 3. Neurology evaluation. 4. Continue current rate control regimen. cc: Dale Pichardo MD
[2016-09-28] MEDS: CARDIZEM PO SCH ×4 (01:43→20:44)
[2016-09-28] MEDS: PRILOSEC PO SCH (06:22)
[2016-09-28] MEDS: NORCO-10 PO PRN ×3 (06:23→20:44)
[2016-09-28 06:45] LABS: AGAP 14; BUN 9 mg/dL (8-22); CALCIUM 8.9 mg/dL (8.8-10.2); CHLORIDE 104 mmol/L (98-107); COSMO 284; HEMATOCRIT 32.3 % (42.0-52.0); HEMOGLOBIN 10.2 g/dL (14.0-18.0); MCH 31.5 PG (27-31); MCHC 31.6 g/dL (33-37); MCV 99.7 FL (81-99); MPV 11.1 FL (7.4-10.4); POTASSIUM 3.7 mmol/L (3.5-5.1); RBC 3.24 XMIL (4.7-6.1); SODIUM 143 mmol/L (136-145); TCO2 25 mmol/L (25-35)
[2016-09-28] MEDS: TYLENOL PO PRN (09:08)
[2016-09-28] MEDS: ASPIRIN EC PO SCH (09:08)
[2016-09-28] MEDS: LOVENOX SUBQ SCH ×2 (09:08→12:59)
--- NOTE | 2016-09-28 17:46 | PROGRESS NOTE ---
DATE: 09/28/2016 SUBJECTIVE: The patient says he feels like "crap" but he looks okay. No major complaints. OBJECTIVE: Vital signs: Blood pressure 136/65, heart rate of 58, respiratory rate 20, temperature degrees 98.2, 93% on room air. Cardiovascular: Regular rate and rhythm. Pulmonary: Bilateral breath sounds. Clear to auscultation. GI: Soft, nontender, nondistended. Bowel sounds are positive. Extremities: No clubbing or cyanosis. Lymphatics: No peripheral edema. Neurological: Nonfocal. LABORATORY DATA: White count 5, hemoglobin and hematocrit 10 and 32, platelets 287,000. Basic looked okay. Potassium 3.7. Folate low at 3.6. PROBLEM LIST: 1. Atrial fibrillation with rapid ventricular response with history of chronic atrial fibrillation. He is on aspirin and Cardizem, I believe. We will convert him to oral Cardizem. He is currently on 240 but maybe 180 will be sufficient. Again, I think he probably needs long-term anticoagulation but he is at risk for frequent falls. That being said, we will discuss with cardiology about long-term anticoagulation. 2. Anemia, macrocytic. Looks like he is folate deficient. We will supplement and follow. 3. Neuro with ataxia and diplopia. Neurology is following. There is no evidence of stroke. He certainly may have had a TIA. Again, I would consider aspirin plus anticoagulation or anticoagulation alone and follow. 4. Disposition. We are working on possible rehab. Patient does want to go home but I am not entirely sure he is stable enough to do that. So, we will pursue rehab is amenable. cc: Ariel Loaiza MD
[2016-09-29] MEDS: PRILOSEC PO SCH (06:00)
[2016-09-29] MEDS: ASPIRIN EC PO SCH (08:31)
[2016-09-29] MEDS: CARDIZEM CD PO SCH (08:31)
[2016-09-29] MEDS: NORCO-10 PO PRN ×2 (09:08→15:56)
[2016-09-29 10:06] LABS: HEMATOCRIT 34.9 % (42.0-52.0); HEMOGLOBIN 11.2 g/dL (14.0-18.0); MCH 30.9 PG (27-31); MCHC 32.1 g/dL (33-37); MCV 96.4 FL (81-99); MPV 10.7 FL (7.4-10.4); RBC 3.62 XMIL (4.7-6.1)
[2016-09-29 11:21] LABS: AGAP 14; BUN 7 mg/dL (8-22); CALCIUM 9.5 mg/dL (8.8-10.2); CHLORIDE 98 mmol/L (98-107); MAGNESIUM 1.8 mg/dL (1.5-2.7); POTASSIUM 3.8 mmol/L (3.5-5.1); SODIUM 139 mmol/L (136-145); TCO2 27 mmol/L (25-35)
[2016-09-29] MEDS: LOVENOX SUBQ SCH (11:28)
[2016-09-29 11:51] LABS: COSMO 278
--- NOTE | 2016-09-29 15:50 | PROGRESS NOTE ---
DATE: 09/29/2016 Mr. Fitzpatrick is a good bit brighter today. He reports he was able to walk with physical therapy assistance and he believes he did well with that. His MRI scan shows significant predominantly temporal and frontal atrophy. He reports not aware of any prior brain MRI and not aware of any prior brain diagnosis except the possibility of previous stroke causing right hemiparesis. His gait description sounds like apraxia with retropulsion. He does not have prominent feature of Parkinson's disease, but we might consider cautious levodopa trial. 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 He reports plans for discharge soon and I will arrange to see him in my office to consider levodopa and to follow hos gait problems and cognitive function. Thanks for asking me to see Mr. Fitzpatrick. cc: MD KARAN Glass III
[2016-09-29] MEDS ORDERED: HALDOL IM PRN (16:04)
--- NOTE | 2016-09-29 16:46 | PROGRESS NOTE ---
DATE: 09/29/2016 SUBJECTIVE: The patient is resting comfortably in bed. He complains of generalized aches and pain. OBJECTIVE: Vital Signs: Temperature 98.2 degrees, blood pressure 151/70, heart rate 97, respirations 20, O2 saturations 97% on room air. General Appearance: Generally, this is an elderly male, lying in bed, in no acute distress. Head: Normocephalic, atraumatic. Heart: S1, S2 normal. Tachycardic. Lungs: Equal air entry bilaterally. No crackles, no rales. Abdomen: Positive bowel sounds. Soft, nontender, nondistended. Extremities: No edema. No cyanosis. Neurological Examination: The patient is alert and oriented x3. LABS: Reviewed. ASSESSMENT AND PLAN: 1. Atrial fibrillation. Continue on Cardizem. Further recommendations to follow from the [facility]. 2. Folate deficiency. We will start the patient on folic acid replacement. 3. Ataxia. Continue with physical therapy. The patient may require rehab. 4. Suspected transient ischemic attack. Continue on aspirin. 5. Continue with physical therapy. cc: Nishi Julian MD
[2016-09-30] MEDS: NORCO-10 PO PRN ×2 (03:30→15:14)
[2016-09-30 06:00] LABS: MANUAL DIFF NEEDED? NO
[2016-09-30 06:03] LABS: BASO% 0.5 % (0.0-0.8); EOS# 0.13 X1000 (0.0-0.7); HEMATOCRIT 31.1 % (42.0-52.0); HEMOGLOBIN 9.8 g/dL (14.0-18.0); IMM GRAN# 0.05 X1000 (0.0-0.04); IMM GRAN% 0.8 % (0.0-0.5); LYMPH# 0.77 X1000 (1.2-3.4); LYMPH% 11.7 % (20.5-51.1); MCH 30.3 PG (27-31); MCHC 31.5 g/dL (33-37); MCV 96.3 FL (81-99); MONO# 0.54 X1000 (0.11-0.59); MONO% 8.2 % (1.7-9.3); MPV 10.6 FL (7.4-10.4); NEUT% 76.8 % (42.2-75.2); PLT 304 X1000 (130-400); RBC 3.23 XMIL (4.7-6.1)
[2016-09-30 06:26] LABS: AGAP 8; ALBUMIN 3.5 g/dL (3.5-5.0); ALKALINE PHOSPHATASE 92 U/L (32-122); BUN 13 mg/dL (8-22); CALCIUM 9.1 mg/dL (8.8-10.2); CHLORIDE 102 mmol/L (98-107); COSMO 278; GOT 41 U/L (10-34); GPT 54 U/L (10-44); POTASSIUM 3.6 mmol/L (3.5-5.1); SODIUM 139 mmol/L (136-145); TCO2 29 mmol/L (25-35); TOTAL BILIRUBIN 0.83 mg/dL (0.20-1.00); TOTAL PROTEIN 6.2 g/dL (6.3-8.3)
[2016-09-30] MEDS: CARDIZEM CD PO SCH (08:34)
[2016-09-30] MEDS: PRILOSEC PO SCH (08:35)
[2016-09-30] MEDS: ASPIRIN EC PO SCH (08:35)
[2016-09-30] MEDS ORDERED: FOLIC ACID PO SCH (09:00)
--- NOTE | 2016-09-30 13:07 | DISCHARGE SUMMARY ---
ADMISSION DATE: 09/25/2016 DISCHARGE DATE: 09/30/2016 CONSULTATIONS: 1. Dr. Narvaez with Cardiology. 2. Dr. Kayaky Johansen with Neurology PERTINENT PROCEDURES: 1. Head CT showed chronic appearing intracranial changes. No definite acute intracranial pathology. 2. Echocardiogram showed mild mitral regurgitation, mild tricuspid regurgitation , mild concentric left hypertrophy. The estimated EF of 55. Atrial fibrillation. 3. Brain MRI. Showed atrophy with chronic microvascular changes. No recent infarct. DISCHARGE DIAGNOSES: 1. Chronic atrial fibrillation 2. Folate deficiency 3. Ataxia 4. Suspected TIA HOSPITAL COURSE: Briefly, Mr. Fitzpatrick is a 71-year-old, male who has a past medical history of chronic atrial fibrillation, hypertension, GERD, venous stasis with lower extremity swelling and several TIAs. Reportedly on admission found down on the floor at his home by his daughter. The patient stated that he passed out. He had no sensation that he was going to pass out. He just woke up on the floor. He presented to the ED. He was in atrial fibrillation with a tachycardic rate. Head CT that was performed revealed chronic changes but no acute findings. He did have a right ear laceration that was sutured. He has had several falls in the past. He also had one 3 days prior where he passed out. According to family in July he was at [facility] and returned home with home health. He was worked up for a syncopal spell , seen by Cardiology as well as Neurology. Brain MRI was negative. The patient was admitted and monitored on telemetry. Cardiology would like to consider ambulatory ECG monitoring for 30 days on an event recorder as an outpatient. Neuro would like to arrange to see him in the office to consider levodopa and to follow his gait problems and cognitive function. The patient has worked with physical therapy. [facility] was consulted for rehab placement. The patient is stable for discharge today. Vital signs: Temperature is 98 degrees, heart rate 103, respirations 18, blood pressure 118/53, O2 is 95% on room air. DISCHARGE DIET: Healthy heart. DISCHARGE MEDICATIONS: 1. Aspirin 81 mg p.o. daily. 2. Cardizem CD 180 mg p.o. daily. 3. Folic acid 1 mg p.o. daily. 4. [place] 10 1 each p.o. q.6 hours p.r.n. FOLLOWUP: Patient is being discharged to rehab. He will follow up with Dr. Pichardo, in 2 weeks [address] as Dr. Johansen in 1 month and his primary care provider Zina Balderrama after rehab. Patient can return to the ED for any worsening of symptoms. Discharge time 30 minutes. Dictated by VIRGINIA Kwon for Nishi Julian MD cc: MD Zina Yoder [facility] HOSPITALEdgardo
[2016-09-30] MEDS: LOVENOX SUBQ SCH (13:49)
[2016-09-30 15:31] VITALS: BP 130/63
--- NOTE | 2016-10-06 15:09 | Carotid Study ---
DATE: 09/25/2016 PROCEDURE: Bilateral duplex and color flow imaging of the carotid arteries performed using a GE Vivid E9 ultrasound system with a 9L-D transducer. REFERRING PHYSICIAN: Dr. Loaiza. INTERPRETING PHYSICIAN: Dr. Lee. TECH: Penny Mills Domingo. INDICATIONS: Transient ischemic attack, ICD10 G45.9. OBSERVED DATA RIGHT LEFT Brachial Blood Pressure Carotid Pulse Bruits: Carotid/Sub DIAGRAM OF ULTRASOUND IMAGING R L RIGHT INT EXT INT EXT LEFT Loi (cm/s) Loi (cm/s) Subclavian 105/0 Subclavian 143/0 CCA Proximal 95/14 CCA Proximal 94/14 CCA Distal 82/17 CCA Distal 54/11 Bulb 76/13 Bulb 48/7 ICA Proximal 89/18 ICA Proximal 420/73 ICA Mid 102/25 ICA Mid 205/45 ICA Distal 139/33 ICA Distal 176/33 ECA 126/16 ECA 135/10 Vertebral Forward flow, 52/13 Vertebral Forward flow, 78/20 ICA/CCA Ratio Not recorded ICA/CCA Ratio Not recorded % Stenosis 40-59% % Stenosis 80-99% PHYSICIAN INTERPRETATION: A critical stenosis at the takeoff of the left internal carotid artery which is hemodynamically significant. There is moderate atherosclerotic disease in the right carotid system without evidence of a hemodynamically significant lesion on the right side. cc: MD Livier Madrid CRNP
--- NOTE | 2016-10-06 17:18 | Extremity Venous Study ---
PROCEDURE NAME: Venous U/S Bilateral Legs - 09/25/2016 BILATERAL LOWER EXTREMITY VENOUS DUPLEX AND COLOR FLOW IMAGING STUDY: TECHNIQUE: Study performed using the [employer] vivid E9 ultrasound System with a 9 L-D transducer. REFERRING PHYSICIAN: Dr. Loaiza. REFRIGERATOR ROOM CLERK: Penny Mills RVT. INDICATION: Swelling of the limb, ICD-10 is M79.89. FINDINGS: The right common femoral vein and its branches, deep and superficial femoral veins were satisfactorily imaged. They had flow through them and were compressible. Right popliteal vein and the deep veins below the right knee were all compressible and had flow through them. The superficial veins of the right lower extremity were compressible throughout their length. The left common femoral vein and its branches, deep and superficial femoral veins were also satisfactorily imaged. They had flow through them and were compressible. Left popliteal vein and the deep veins below the left knee were all compressible and had flow through them. The superficial veins of the left lower extremity were compressible throughout their length. INTERPRETATION: No evidence of acute deep or superficial venous thrombosis of the bilateral lower extremities. cc: MD Livier Madrid CRNP
== END 2016-09-30 16:03 ==
LOC: SUPCPDRO → ED 03:52 → SUATTDRO 13:44 → P.MEDSURG 13:44 → EDIPHOLD 14:38 → 3S 19:48 → 4N 09-27 14:43
PROVIDERS: ATTEND Internal Medicine

== ENCOUNTER 2016-11-13 08:01 | Inpatient (IN) ==
[2016-11-13 08:37] LABS: MANUAL DIFF NEEDED? NO
[2016-11-13 08:42] LABS: BASO% 0.2 % (0.0-0.8); EOS# 0.05 X1000 (0.0-0.7); EOS% 0.4 % (0.0-10.0); HEMATOCRIT 35.7 % (42.0-52.0); HEMOGLOBIN 11.4 g/dL (14.0-18.0); IMM GRAN% 2.5 % (0.0-0.5); LYMPH% 5.8 % (20.5-51.1); MCH 29.1 PG (27-31); MCHC 31.9 g/dL (33-37); MCV 91.1 FL (81-99); MONO# 0.82 X1000 (0.11-0.59); MONO% 6.8 % (1.7-9.3); MPV 9.9 FL (7.4-10.4); NEUT% 84.3 % (42.2-75.2); PLT 408 X1000 (130-400); RBC 3.92 XMIL (4.7-6.1)
[2016-11-13 08:53] LABS: BE 2.7 mmoll (-3.0-3.0); BLOOD TYPE ARTERIAL; DRAW SITE R BRACHIAL; METHB 1.5 % (0.0-1.5); O2(CT) 14.1 mL/dL (15.0-23.0); PCO2(98.6) 35 mmHg (35-45); PO2(98.6) 58 mmHg (60-100); SAMPLE BLOOD; SAO2 93.9 % (95.0-100.0); THB 11.1 g/dL (11.5-17.4); pH(98.6) 7.48 (7.35-7.45)
[2016-11-13 08:59] LABS: ALLEN TEST NO; MODALITY ROOM AIR
[2016-11-13 09:00] LABS: INR 0.97 (0.86-1.15); PROTIME 13.7 Seconds (12.1-15.5)
[2016-11-13 09:01] LABS: PTT PL 29.8 Seconds (22.6-43.9)
[2016-11-13 09:13] LABS: AGAP 11; ALBUMIN 3.6 g/dL (3.5-5.0); ALKALINE PHOSPHATASE 161 U/L (32-122); BUN 12 mg/dL (8-22); CALCIUM 8.7 mg/dL (8.8-10.2); CHLORIDE 100 mmol/L (98-107); CK PROFILE 29 U/L (24-204); COSMO 273; GOT 13 U/L (10-34); GPT 32 U/L (10-44); MAGNESIUM 2.1 mg/dL (1.5-2.7); SODIUM 136 mmol/L (136-145); TCO2 25 mmol/L (25-35); TOTAL PROTEIN 6.7 g/dL (6.3-8.3)
--- NOTE | 2016-11-13 09:22 | Diag Imaging Result Doc PS360 ---
EXAM: CT HEAD/C-SPINE W/O CONTRAST - 11/13/2016 HISTORY: Recurrent falls TECHNIQUE: CT head and cervical spine. Dose reduction protocol. COMPARISON: 11/05/2016 FINDINGS: CT head: There are atrophic changes in mild chronic microvascular ischemic changes similar to the previous exam. There is no evidence of intracranial hemorrhage, mass effect, or midline shift. There is no evidence of skull fracture. CT cervical spine: There is multilevel degenerative disease similar to the previous exam. The degenerative changes are particularly prominent at the atlantoaxial articulation. There is no fracture, subluxation, or precervical soft tissue swelling identified. There are atherosclerotic calcifications noted of the bilateral carotid bulb regions. IMPRESSION: CT head: No evidence of intracranial injury. CT cervical spine: No evidence of fracture or subluxation. Electronically signed by Gael Azevedo 11/13/2016 9:20 AM
--- NOTE | 2016-11-13 09:27 | Diag Imaging Result Doc PS360 ---
EXAM: CT FACIAL BONES W/O CONTRAST - 11/13/2016 HISTORY: Fall with face down, nose bleed from the fall TECHNIQUE: Axial, coronal, sagittal images. Dose reduction protocol. COMPARISON: None. FINDINGS: There is no retrobulbar or orbital hematoma identified. The globes of the orbits appear intact. There is no fracture identified. There is no paranasal sinus fluid identified. IMPRESSION: No evidence of fracture. Electronically signed by Gael Azevedo 11/13/2016 9:24 AM
--- NOTE | 2016-11-13 09:33 | Diag Imaging Result Doc PS360 ---
EXAM: CHEST-1 VIEW - 11/13/2016 HISTORY: AMS TECHNIQUE: Portable chest 9:18 AM COMPARISON: 11/05/2016 FINDINGS: Heart size appears borderline enlarged and stable. There is mild subsegmental atelectasis or scarring at the left base. The remainder lungs appear clear. There is no pleural effusion or pneumothorax identified. There is ununited/unhealed fracture of the distal right clavicle noted. This fracture was seen on the 10/25/2016 right shoulder radiographs. IMPRESSION: Mild left basilar subsegmental atelectasis or scarring. No other evidence of acute cardiopulmonary disease. Electronically signed by Gael Azevedo 11/13/2016 9:30 AM
--- NOTE | 2016-11-13 09:38 | EKG Report ---
Test Performed on : 11/13/2016 09:34:36 AM Test Reason : AMS Blood Pressure : / mmHG Vent. Rate : 112 BPM Atrial Rate : 115 BPM P-R Int : 000 ms QRS Dur : 100 ms QT Int : 346 ms P-R-T Axes : 000 020 022 degrees QTc Int : 472 ms Atrial fibrillation. with rapid ventricular response. with premature ventricular or aberrantly condu cted complexes. Nonspecific T wave abnormality Abnormal ECG When compared with ECG of 05-NOV-2016 07:31, No significant change was found Unconfirmed Result
[2016-11-13 09:55] LABS: UR AMPHETAMINES QUAL NONE DETECTED (NONE DETECT); UR BARBITUATES QUAL NONE DETECTED (NONE DETECT); UR BENZODIAZEPIN QUAL NONE DETECTED (NONE DETECT); UR CANNABINOIDS QUAL NONE DETECTED (NONE DETECT); UR COCAINE QUAL NONE DETECTED (NONE DETECT); UR MDMA QUAL NONE DETECTED (NONE DETECT); UR METHADONE QUAL NONE DETECTED (NONE DETECT); UR METHAMPHETAMINE QUAL NONE DETECTED (NONE DETECT); UR OPIATES QUAL NONE DETECTED (NONE DETECT); UR OXYCODONE QUAL NONE DETECTED (NONE DETECT); UR PCP QUAL NONE DETECTED (NONE DETECT); UR TCA QUAL NONE DETECTED (NONE DETECT)
[2016-11-13] MEDS ORDERED: CARDIZEM ONE (09:57)
[2016-11-13] MEDS ORDERED: CARDIZEM IV ONE (10:01)
[2016-11-13 10:08] LABS: BILIRUBIN URINE NEGATIVE (NEGATIVE); BLOOD URINE 1+ (NEGATIVE); CLARITY CLEAR (CLEAR); COLOR YELLOW; GLUCOSE URINE NEGATIVE (NEGATIVE); LEUKOCYTES URINE 1+ (NEGATIVE); NITRITE URINE NEGATIVE (NEGATIVE); PROTEIN URINE TRACE mg/dL (NEGATIVE); SP GRAVITY URINE 1.015; UROBILINOGEN URINE 4+(12 mg/dL)
[2016-11-13 10:09] LABS: URINE CULTURE PL NEEDED? YES; URINE EPITHELIAL CELLS <10 /HPF (<10); URINE RBC <10 /HPF (<10); URINE SOURCE CATH; URINE WBC <10 /HPF (<10)
--- NOTE | 2016-11-13 10:46 | PROVIDER DOCUMENTATION ---
This chart was entered by Urmila Muñiz Scribe, acting as scribe for Javid Osorio MD. HPI-Head Injury - General Chief Complaint: Head Injury Stated Complaint: Fall Time Seen by Provider: 11/13/16 08:25 Source: patient Allergies/Adverse Reactions: Patient Allergies Allergy/AdvReac Type Severity Reaction Status Date / Time No Known Allergies Allergy Verified 11/05/16 06:38 Home Medications: Home Medication List Medication Instructions Recorded Confirmed Last Taken Type Aspirin 81 mg PO DAILY 09/25/16 11/05/16 09/24/16 History 81 mg Diltiazem C.d. [Cardizem Cd] 180 mg PO DAILY capsule 09/30/16 11/05/16 Unknown Rx Folic Acid 1 mg PO DAILY tablet 09/30/16 11/05/16 Unknown Rx Hydrocodone/APAP 10 mg/325 mg 1 each PO Q6H PRN PRN #0 tablet 09/30/16 10/25/16 Unknown Rx [[place]-10] Magnesium Hydroxide [Milk of 30 ml PO DIRECTED 10/25/16 11/05/16 Unknown History Magnesia] - History of Present Illness-Head Injury Nature of Presenting Problem: pt is a 71 y/o M that presents to ED with CC of falling in senior care per EMS report. The report stated that the PT fell face first onto the floor and made his nose bleed. EMS states they took out multiple clots from the nose. PT falls frequently and has been seen in ED frequently. Head Injury Location: reports: other (c/o nose pain only.) Other injuries associated with incident:: reports: none Quality of Pain: reports: aching Severity: reports: mild Onset/Duration: reports: abrupt, 1-3 hours ago Timing: reports: improving Method of Injury: reports: fell Any recent trauma/injury?: reports: other (PT has fallen multiple times) Loss of Consciousness: no loss of consciousness Modifying Factors: improves with: nothing Injury Associated Symptoms: denies: chest pain, dizziness, headaches, nausea, vomiting Locality of Occurance: Other (senior care) Similar Symptoms Previously?: Yes Recently seen or treated by another doctor?: Yes Review of Systems - Adult - REVIEW OF SYSTEMS - ADULT Constitutional: reports: no symptoms reported Eyes: reports: no symptoms reported Ears, Nose, Mouth & Throat: reports: nose pain (nose bleed) Cardiovascular: reports: no symptoms reported Respiratory: reports: no symptoms reported Gastrointestinal: reports: no symptoms reported Genitourinary: reports: no symptoms reported Musculoskeletal: reports: no symptoms reported Integumentary: reports: no symptoms reported Neurological: reports: no symptoms reported Psychiatric: reports: no symptoms reported Endocrine: reports: no symptoms reported Hematologic/Lymphatic: reports: no symptoms reported Allergic/Immunologic: reports: no symptoms reported All Other Systems: Reviewed and Negative Past History - Adult - PAST MEDICAL HISTORY-ADULT Review of Records: reports: Old Records Reviewed, Nursing Assessment Review, Medications Reviewed Major Childhood Illnesses: reports: denies history Cardiovascular: reports: HTN Respiratory: reports: denies history Gastrointestinal: reports: denies history Obstetrical/Gynecological: reports: denies history Genitourinary: reports: denies history Musculoskeletal: reports: denies history Neurological: reports: denies history Endocrine/Immune: reports: denies history Other Conditions: reports: denies history - IMMUNIZATION STATUS Childhood Immunizations: See Nurse Assessment Flu Vaccine: See Nurse Assessment - FAMILY HISTORY Family History: reviewed, not pertinent Physical Exam- Neurological - Physical Exam-Neuro Initial Vital Signs Reviewed: Yes General Appearance: appears well, other (pt not answering questions cohesively) Eye Exam: bilateral eye: normal inspection HENMT: normocephalic/atraumatic, moist mucous membranes, normal ENT inspection Head Injury: no evidence of injury Neck: non-tender, full range of motion, supple Respiratory: chest non-tender, lungs clear, normal breath sounds Cardiovascular: normal peripheral pulses, regular rate, rhythm, no edema Abdominal Exam: normal bowel sounds, non tender, soft Lymphatic: no adenopathy Extremity: normal range of motion, 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 None of them appear to be new) Psych/Mental Status: normal mood/affect, normal thought content, normal thought process Progress - PLAN OF CARE/RESULTS Progress/Plan/Lab Results: Vital Signs - 8 hr 11/13/16 08:05 11/13/16 08:15 11/13/16 09:34 Temperature 97.2 F L Pulse Rate 92 H 106 H 113 H Respiratory Rate 20 20 23 Blood Pressure 132/84 140/76 138/72 O2 Sat by Pulse Oximetry 92 L 94 L 96 11/13/16 10:13 Temperature Pulse Rate 97 H Respiratory Rate 19 Blood Pressure 140/74 O2 Sat by Pulse Oximetry 98 Laboratory Results - last 24 hr 11/13/16 11/13/16 11/13/16 08:29 08:31 08:32 WBC RBC Hgb Hct MCV MCH MCHC RDW Std Deviation Plt Count MPV Immature Gran % (Auto) Neut % (Auto) Lymph % (Auto) [place] % (Auto) Eos % (Auto) Baso % (Auto) Immature Gran # (Auto) Neut # (Auto) Lymph # (Auto) [place] # (Auto) Eos # (Auto) Baso # (Auto) PT INR APTT (Factor Assay) Specimen Type ARTERIAL Sample Site R BRACHIAL pH 7.48 H pCO2 35 pO2 58 L HCO3 26.9 H Base Excess 2.7 Oxyhemoglobin 90.2 L ABG O2 Sat (Calculated) 14.1 L ABG O2 Saturation 93.9 L ABG Carboxyhemoglobin 2.40 ABG Methemoglobin 1.5 Billy Test NO A-a O2 Difference 48.0 Total Hemoglobin 11.1 L Lactate 0.60 Blood Gas Modality ROOM AIR FiO2 % 21.0 Sodium 136 Potassium 4.0 Chloride 100 Carbon Dioxide 25 Anion Gap 11 BUN 12 Creatinine 0.6 L Estimated GFR/1.73 m2 > 60 BUN/Creatinine Ratio 20 Glucose 117 H POC Glucose 117 H Calculated Osmolality 273 Calcium 8.7 L Magnesium 2.1 Total Bilirubin 1.10 H AST 13 ALT 32 Alkaline Phosphatase 161 H Creatine Kinase 29 Troponin T [id number] Pept Total Protein 6.7 Albumin 3.6 Globulin 3.0 Albumin/Globulin Ratio 1.0 Urine Source Urine Color Urine Clarity Urine pH Ur Specific [place] Urine Protein Urine Ketones Urine Blood Urine Nitrite Urine Bilirubin Urine Urobilinogen Urine Microscopic RBC Urine WBC Urine Microscopic WBC Ur Epithelial Cells Urine Bacteria Urine Glucose Urine Opiates Screen Ur Oxycodone Screen Urine Methadone Screen Ur Barbituates Screen Ur Tricyclics Screen Ur Phencyclidine Scrn Ur Amphetamines Screen U Methamphetamines Scrn Urine MDMA Screen U Benzodiazepines Scrn Urine Cocaine Screen U Cannabinoids Screen 08/24/17 08/24/17 08/24/17 08:32 08:32 08:32 WBC 12.07 H RBC 3.92 L Hgb 11.4 L Hct 35.7 L MCV 91.1 MCH 29.1 MCHC 31.9 L RDW Std Deviation 15.6 H Plt Count 408 H MPV 9.9 Immature Gran % (Auto) 2.5 H Neut % (Auto) 84.3 H Lymph % (Auto) 5.8 L [place] % (Auto) 6.8 Eos % (Auto) 0.4 Baso % (Auto) 0.2 Immature Gran # (Auto) 0.30 H Neut # (Auto) 10.17 H Lymph # (Auto) 0.70 L [place] # (Auto) 0.82 H Eos # (Auto) 0.05 Baso # (Auto) 0.03 PT INR APTT (Factor Assay) Specimen Type Sample Site pH pCO2 pO2 HCO3 Base Excess Oxyhemoglobin ABG O2 Sat (Calculated) ABG O2 Saturation ABG Carboxyhemoglobin ABG Methemoglobin Billy Test A-a O2 Difference Total Hemoglobin Lactate Blood Gas Modality FiO2 % Sodium Potassium Chloride Carbon Dioxide Anion Gap BUN Creatinine Estimated GFR/1.73 m2 BUN/Creatinine Ratio Glucose POC Glucose Calculated Osmolality Calcium Magnesium Total Bilirubin AST ALT Alkaline Phosphatase Creatine Kinase Troponin T < 0.010 [id number]-[id number] Pept 717 H Total Protein Albumin Globulin Albumin/Globulin Ratio Urine Source Urine Color Urine Clarity Urine pH Ur Specific [place] Urine Protein Urine Ketones Urine Blood Urine Nitrite Urine Bilirubin Urine Urobilinogen Urine Microscopic RBC Urine WBC Urine Microscopic WBC Ur Epithelial Cells Urine Bacteria Urine Glucose Urine Opiates Screen Ur Oxycodone Screen Urine Methadone Screen Ur Barbituates Screen Ur Tricyclics Screen Ur Phencyclidine Scrn Ur Amphetamines Screen U Methamphetamines Scrn Urine MDMA Screen U Benzodiazepines Scrn Urine Cocaine Screen U Cannabinoids Screen 11/13/1617 11/13/16 08:32 09:15 09:15 WBC RBC Hgb Hct MCV MCH MCHC RDW Std Deviation Plt Count MPV Immature Gran % (Auto) Neut % (Auto) Lymph % (Auto) [place] % (Auto) Eos % (Auto) Baso % (Auto) Immature Gran # (Auto) Neut # (Auto) Lymph # (Auto) [place] # (Auto) Eos # (Auto) Baso # (Auto) PT 13.7 INR 0.97 APTT (Factor Assay) 29.8 Specimen Type Sample Site pH pCO2 pO2 HCO3 Base Excess Oxyhemoglobin ABG O2 Sat (Calculated) ABG O2 Saturation ABG Carboxyhemoglobin ABG Methemoglobin Billy Test A-a O2 Difference Total Hemoglobin Lactate Blood Gas Modality FiO2 % Sodium Potassium Chloride Carbon Dioxide Anion Gap BUN Creatinine Estimated GFR/1.73 m2 BUN/Creatinine Ratio Glucose POC Glucose Calculated Osmolality Calcium Magnesium Total Bilirubin AST ALT Alkaline Phosphatase Creatine Kinase Troponin T [id number]-[id number] Pept Total Protein Albumin Globulin Albumin/Globulin Ratio Urine Source CATH Urine Color YELLOW Urine Clarity CLEAR Urine pH 7.0 Ur Specific [place] 1.015 Urine Protein TRACE A Urine Ketones NEGATIVE Urine Blood 1+ A Urine Nitrite NEGATIVE Urine Bilirubin NEGATIVE Urine Urobilinogen 4+(12 mg/dL) Urine Microscopic RBC <10 Urine WBC 1+ A Urine Microscopic WBC <10 Ur Epithelial Cells <10 Urine Bacteria 2+ Urine Glucose NEGATIVE Urine Opiates Screen NONE DETECTED Ur Oxycodone Screen NONE DETECTED Urine Methadone Screen NONE DETECTED Ur Barbituates Screen NONE DETECTED Ur Tricyclics Screen NONE DETECTED Ur Phencyclidine Scrn NONE DETECTED Ur Amphetamines Screen NONE DETECTED U Methamphetamines Scrn NONE DETECTED Urine MDMA Screen NONE DETECTED U Benzodiazepines Scrn NONE DETECTED Urine Cocaine Screen NONE DETECTED U Cannabinoids Screen NONE DETECTED Orders Category Date Time Status Cardiac Monitoring DIRECTED Care 11/13/16 08:15 Active Finger Stick Blood Sugar (ED) DIRECTED Care 11/13/16 08:15 Active Oxygen Therapy- ED Nursing DIRECTED Care 11/13/16 08:15 Active Saline Loc NOW Care 11/13/16 08:15 Active CHEST-1 VIEW [RAD] Stat Exams 11/13/16 08:[address] ABD/PELVIS/PULM ARTERIES [CT] Stat Exams 11/13/16 10:[address] FACIAL BONES W/O CONTRAST [CT] Stat Exams 11/13/16 08:[address] HEAD/C-SPINE W/O CONTRAST [CT] Stat Exams 11/13/16 08:15 Completed ABG [RESP] Routine Lab 11/13/16 08:29 Completed CBC WITH ELECTRONIC DIFF [HEME] Stat Lab 11/13/16 08:32 Completed CK PROFILE [SP CHEM] Stat Lab 11/13/16 08:32 Completed COMPREHENSIVE METABOLIC PANEL [CHEM] Stat Lab 11/13/16 08:32 Completed MAGNESIUM [CHEM] Stat Lab 11/13/16 08:32 Completed PRO B-NATRIURETIC PEPTIDE Stat Lab 11/13/16 08:32 Completed [address]IME WITH INR PL [COAG] Stat Lab 11/13/16 08:[address] [COAG] Stat Lab 11/13/16 08:32 Completed TROPONIN T Stat Lab 11/13/16 08:[address] W/POSS RFLX CULT [URINALYSIS] Stat Lab 11/13/16 09:15 Completed URINE CULTURE [RM] Routine Lab 11/13/16 10:09 Ordered URINE DRUG SCREEN [address] Stat Lab 11/13/16 09:15 Completed Diltiazem [Cardizem] Med 11/13/16 10:01 Discontinued 20 mg IV NOW ONE Diltiazem [Cardizem] Med 11/13/16 09:57 Discontinued 25 mg .ROUTE .STK-MED ONE Pulse Oximetry Stat Oth 11/13/16 08:15 Active EKG [EKG] Stat Ther 11/13/16 08:15 Draft Result Diagrams: 11/13/16 08:32 11/13/16 08:32 - EKG 1 Time of EKG reading by physician:: 09:34 EKG Read and Signed by:: Javid Osorio EKG Interpretation (*Must complete 3 of following elements*): Abnormal Rate: 112 Rhythm: afib with rapid ventricular response with premature ventricular complexes ST Wave: non-specific ST changes (t wave) Comments: premature ventricular or aberrantly conducted complexes - XRAY 1 XRAY Study: Chest Impression: Normal - CT/MRI 1 CT Study: Facial Bones, Head, Neck Impression: Normal Departure - Departure Date of Disposition Decision: 11/13/16 Time of Disposition Decision: 10:43 DIAGNOSIS: Head injury, Hypoxia, Atrial fibrillation with RVR Disposition: ADMITTED INPATIENT 09 Certified Medical Emergency: Emergent Condition: Fair Referrals and Follow-Ups: Chad Freed MD [Primary Care Provider] - - Critical Care Note This patient required my direct & personal management of CC.: No Attestation - Physician/ OLEKSANDR Attestation Patient care was provided by Advanced Practice Provider:: No The physician spent face to face time with patient:: Yes Advanced Practice Provider documentation review:: Supervising physician onsite and consulted in the evaluation and care of this patient. The physician did have a face to face encounter with the patient. This chart was documented by the indicated scribe, (Urmila Muñiz, Scribe) and accurately reflects the services I performed and decisions made by me, Javid Osorio MD, as attested by the provider's signature.
--- NOTE | 2016-11-13 12:09 | Diag Imaging Result Doc PS360 ---
EXAM: CT ABD/PELVIS/PULM ARTERIES - 11/13/2016 HISTORY: Recurrent Fall/SOB TECHNIQUE: With intravenous contrast. Dose reduction protocol. Multiple axial images, as well as reconstructed coronal MIP images for the CT angiogram pulmonary arteries. COMPARISON: None. FINDINGS: CT angiogram pulmonary arteries: There are no filling defects identified in the pulmonary arteries. There are fractures of the right lateral right second, lateral right third, lateral sixth, posterior lateral seventh, posterior lateral eighth, posterior ninth, and posterior 10th ribs. The second and third fractures appear subacute, with associated callus formation, while the other fractures appear acute. There is a medium right pleural effusion with adjacent compressive/dependent atelectasis. There is a tiny left pleural effusion with adjacent dependent atelectasis. There is no pneumothorax identified. There are mild COPD changes. There is no pneumonia identified. CT abdomen and pelvis: There is borderline hepatosplenomegaly. There are no focal abnormalities of the liver or spleen identified. There are no substantial analysis of the adrenal glands or pancreas identified. The bilateral kidneys enhance homogeneously except for a a few tiny cysts. There are tiny calcified gallstones in the dependent portion of the gallbladder. There is no pericholecystic inflammation identified. There is ectasia of the infrarenal abdominal aorta measuring 3.3 x 2.9 cm. There are extensive atherosclerotic calcifications noted. There are lumbar spine degenerative changes noted. There is no evidence of bowel obstruction. There is no substantial bowel wall thickening identified. There is a large amount retained fecal debris in the colon consistent with constipation. There is uncomplicated colonic diverticulosis. There is no free air or free fluid identified. There is no peritoneal or retroperitoneal hematoma identified. IMPRESSION: CT angiogram pulmonary arteries: No evidence of pulmonary embolism. Multiple acute and subacute right rib fractures. Medium right pleural effusion. Tiny left pleural effusion. No evidence of pneumothorax. CT abdomen and pelvis: No evidence of injury to the abdomen or pelvis. Borderline hepatosplenomegaly. Tiny gallstones in gallbladder. Ectasia of infrarenal abdominal aorta measuring 3.3 x 2.9 cm. Severe constipation. Electronically signed by Gael Azevedo 11/13/2016 12:07 PM
[2016-11-13] MEDS ORDERED: NORCO-5 PO ONE (17:47)
[2016-11-13] MEDS ORDERED: ATIVAN IV ONE (17:50)
[2016-11-13] MEDS ORDERED: ZOFRAN IV PRN (18:09)
[2016-11-13] MEDS: ROCEPHIN 1 GM in NS 50 ML IV SCH (18:38)
[2016-11-13] MEDS: NS 1,000 ML IV SCH (19:03)
--- NOTE | 2016-11-13 19:12 | HISTORY AND PHYSICAL ---
PRIMARY CARE PHYSICIAN: Dr. Freed. CHIEF COMPLAINT: Fall. HISTORY OF PRESENT ILLNESS: This is a 71-year-old male who is a resident at [facility], who has had many falls in the past in 4-6 weeks. He is noted to have bruises in various stages of the body. According to EMS, he fell this morning about 6:30 landing on his face, nose first,unsure about a loss of consciousness. CT of the head was performed which revealed no evidence of intracranial injury, with facial bones with no evidence of a fracture. He also had a CT chest, abdomen, and pelvis which revealed no evidence of injury to the abdomen or pelvis. No evidence of pulmonary embolism. He has been sent for further evaluation and treatment. PAST MEDICAL HISTORY: 1. Chronic atrial fibrillation. 2. Hypertension. 3. Gastroesophageal reflux disease. 4. Venous stasis with lower extremity swelling. 5. TIAs. PAST SURGICAL HISTORY: Bilateral wrist surgeries, jaw surgery. SOCIAL HISTORY: He quit smoking in the . No alcohol or illicit drug use. He does live at [facility] presently. ALLERGIES: No known drug allergies. HOME MEDICATIONS: A list will be obtained. REVIEW OF SYSTEMS: A 14 point review of systems discussed with the patient with pertinent positives being in the HPI. Denies chest pain, palpitations, dizziness, shortness of breath, fever, chills, nausea, vomiting, diarrhea, constipation, black or bloody vomitus or stools, hematuria, dysuria, frequency, urgency. PHYSICAL EXAMINATION: GENERAL: This is a 71-year-old male who is sitting up in the bed, in no distress. VITAL SIGNS: Blood pressure is 140/83 with a heart rate of 130, respirations are, temperature is 97.2 degrees, O2 saturations are 96-98 on 2 L nasal cannula. HEENT: Head is normocephalic, atraumatic. Pupils equal, round, react to light. EOMs are intact. Sclerae nonicteric. Mucous membranes are moist. NECK: Supple. Trachea midline. CARDIOVASCULAR: Irregularly irregular rate and rhythm. S1 and S2 appreciated. PULMONARY: Breath sounds are clear. No increased work of breathing noted. GASTROINTESTINAL: Abdomen is soft, nontender, nondistended. Bowel sounds in all 4 quadrants. EXTREMITIES: No clubbing, cyanosis, or edema. Pulses are palpable x4. SKIN: Warm and dry with bruises in multiple stations on both arms, flank, shoulders, and both legs. DIAGNOSTICS/LABS: WBC is 12 with a hemoglobin of 11.4, hematocrit 35.7, platelets of 408,000. Sodium is 136, potassium 4, BUN 12, creatinine 0.6, with a glucose of 117. ABGs , PH 7.4, with a pCO2 35, PO2 of 58, and bicarb of 26.9; this is on room air. CT of the head, cervical spine, abdomen, and pelvis revealed no acute processes. No pulmonary embolus. Facial bones reveal no fractures. ASSESSMENT AND PLAN: 1. Atrial fibrillation with rapid ventricular response. He will be admitted to ICU, be placed on a Cardizem drip, once rate is controlled, transition back over to p.o. medication. 2. Hypoxia. We will give supplemental oxygen. This could be 1 component of his atrial fibrillation RVR. 3. Head injury. CT of the head revealed no acute processes, no bleed, but he has fallen multiple times and he did land on his face. Neuro checks and monitor. 4. Gastroesophageal reflux disease. PPI. 5. Hypertension. Identify and continue home medications. 6. Deep vein thrombosis prophylaxis. Lovenox SQ. 7. Gastrointestinal prophylaxis. Prilosec. Further treatments pending hospital course. Dictated by VIRGINIA Farnsworth for Evasn Larios MD cc: VIRGINIA Farnsworth MD [facility]
[2016-11-13] MEDS: CARDIZEM 100 MG/NS 100 MG/100 ML IVPB IV SCH (23:05)
[2016-11-14] MEDS: NORCO-10 PO PRN (02:50)
--- NOTE | 2016-11-14 03:48 | PROGRESS NOTE ---
DATE: 11/13/2016 ADDENDUM The patient was seen and examined in the ER. Please see full note by the nurse practitioner. Plan discussed with her. The patient was seen in the ER. He is currently in atrial fibrillation with RVR. Will place on Cardizem drip. Will rule out for HI. Check labs in morning. Further orders as needed. cc: Evans Larios MD
[2016-11-14] MEDS: CARDIZEM 100 MG/NS 100 MG/100 ML IVPB IV SCH ×2 (06:24→21:19)
[2016-11-14 06:33] LABS: HEMATOCRIT 33.6 % (42.0-52.0); HEMOGLOBIN 10.6 g/dL (14.0-18.0); MCH 28.6 PG (27-31); MCHC 31.5 g/dL (33-37); MCV 90.8 FL (81-99); MPV 10.3 FL (7.4-10.4); RBC 3.7 XMIL (4.7-6.1)
[2016-11-14] MEDS ORDERED: PRILOSEC PO SCH (07:00)
[2016-11-14 07:07] LABS: AGAP 9; ALBUMIN 3.2 g/dL (3.5-5.0); ALKALINE PHOSPHATASE 153 U/L (32-122); BUN 9 mg/dL (8-22); CALCIUM 8.4 mg/dL (8.8-10.2); CHLORIDE 103 mmol/L (98-107); COSMO 271; GOT 11 U/L (10-34); GPT 23 U/L (10-44); MAGNESIUM 2.1 mg/dL (1.5-2.7); SODIUM 136 mmol/L (136-145); TCO2 25 mmol/L (25-35)
[2016-11-14] MEDS: PRILOSEC PO SCH (10:48)
[2016-11-14] MEDS: ASPIRIN PO SCH (10:50)
[2016-11-14] MEDS: LOVENOX SUBQ SCH (10:50)
[2016-11-14] MEDS: ROCEPHIN 1 GM in NS 50 ML IV SCH (19:08)
[2016-11-14] MEDS: NS 1,000 ML IV SCH (20:49)
[2016-11-15] MEDS: PRILOSEC PO SCH (06:29)
[2016-11-15] MEDS: ASPIRIN PO SCH (08:37)
[2016-11-15] MEDS: LOVENOX SUBQ SCH (08:37)
--- NOTE | 2016-11-15 09:10 | PROGRESS NOTE ---
DATE: 11/14/2016 SUBJECTIVE: Patient without any new complaints, states he is still having palpitations. Denies any fevers or chills, GI or issues. PHYSICAL EXAMINATION: Vital signs reviewed. Blood pressure stable, 120s, 130s. Heart rate elevated, 130s, 150s, despite being on Cardizem drip. HEENT: Normocephalic, atraumatic, SHERRY. Neck: Supple. CV: Irregular rate, irregular rhythm. Chest: Clear and unlabored. Abdomen: Soft. Extremities: Moves all extremities. Neurological: No focal changes. Skin: Warm and dry, no rashes. ASSESSMENT: Atrial fibrillation with RVR. PLAN: Will continue patient on Cardizem drip. Will continue to follow. He is ruled out for a myocardial infarction. Will check thyroid, echo, and will follow. cc: Evans Larios MD
[2016-11-15] MEDS: NS 1,000 ML IV SCH (09:38)
[2016-11-15] MEDS: CARDIZEM 100 MG/NS 100 MG/100 ML IVPB IV SCH (13:52)
--- NOTE | 2016-11-15 14:52 | PROGRESS NOTE ---
DATE: 11/15/2016 SUBJECTIVE: Patient is in no current distress. He is lying in bed. He is confused and does not answer questions. No family is present. OBJECTIVE: Vital signs: Reviewed and stable. His heart rate is still elevated 110s to 130s. Continues to be on Cardizem drip. Blood pressures are tolerant at 105-120 systolic. General: Patient is awake, but confused. He is disoriented. Does not answer questions. Does not follow commands. HEENT: Normocephalic, atraumatic. Neck: Supple. Cardiovascular: Irregular rate, irregular rhythm. Chest: No wheezing, nonlabored. Abdomen: Soft, nondistended. Positive bowel sounds. Extremities: Trace edema. Neurologic: No focal changes from previous exams. ASSESSMENT: 1. Urinary tract infection with gram-positive cocci. 2. Atrial fibrillation with rapid ventricular response. 3. Hypoxia. 4. Recent head injury secondary to multiple falls. 5. Multiple falls. 6. Hypertension. 7. Acute delirium. Expect patient has some mild chronic dementia as the family notes that he does this each time he is in the hospital. PLAN: We will continue patient on IV fluids. IV Cardizem. Oxygen. Continue to follow. Keep him in the ICU for close observation. Further orders as needed. cc: Evans Larios MD
[2016-11-15] MEDS: ROCEPHIN 1 GM in NS 50 ML IV SCH (19:43)
[2016-11-15] MEDS: NORCO-10 PO PRN (20:02)
[2016-11-16] MEDS: PRILOSEC PO SCH (06:07)
[2016-11-16] MEDS: NS 1,000 ML IV SCH (06:07)
[2016-11-16] MEDS: NORCO-10 PO PRN ×3 (06:08→20:30)
[2016-11-16 06:20] LABS: HEMOGLOBIN 10.8 g/dL (14.0-18.0); MCHC 31.8 g/dL (33-37); MCV 91.2 FL (81-99); MPV 10.6 FL (7.4-10.4); RBC 3.73 XMIL (4.7-6.1)
[2016-11-16 06:26] LABS: AGAP 9; BUN 11 mg/dL (8-22); CALCIUM 8.2 mg/dL (8.8-10.2); CHLORIDE 103 mmol/L (98-107); COSMO 270; POTASSIUM 3.6 mmol/L (3.5-5.1); SODIUM 135 mmol/L (136-145); TCO2 23 mmol/L (25-35)
[2016-11-16] MEDS: CARDIZEM 100 MG/NS 100 MG/100 ML IVPB IV SCH (10:16)
[2016-11-16] MEDS: LOVENOX SUBQ SCH (10:17)
[2016-11-16] MEDS: ASPIRIN PO SCH (10:17)
[2016-11-16] MEDS: AUGMENTIN PO SCH ×2 (12:00→20:30)
[2016-11-16] MEDS: CARDIZEM PO SCH ×2 (13:06→20:30)
[2016-11-16] MEDS ORDERED: LOVENOX SUBQ SCH (16:00)
[2016-11-16] MEDS: ROCEPHIN 1 GM in NS 50 ML IV SCH (18:32)
--- NOTE | 2016-11-16 20:09 | PROGRESS NOTE ---
DATE: 11/16/2016 SUBJECTIVE: Patient without any new complaints. He is awake but easily confused. OBJECTIVE: Vital Signs: Reviewed. Temperature 97 degrees, pulse 91, respiratory 18-22, BP 120/66. General: Patient is awake, alert. He is currently in no respiratory distress. Neck: Supple. CV: Regular rate. Chest: Clear. Abdomen: Soft. Extremities: Moves all extremities although generalized weakness. ASSESSMENT: 1. Atrial fibrillation with rapid ventricular response. Will convert to p.o. Cardizem, leave him in the ICU tonight. Hopefully he will remain rate controlled and can be transitioned to the floor tomorrow. 2. Hypoxia, stable. 3. Head injury. Patient unfortunately suffers from recurrent falls. He certainly will need physical therapy and may need rehab as well. 4. Hypertension, stable. PLAN: We will continue as noted. Hopefully can transition to the floor in the a.m. with physical therapy and certainly may need rehab. cc: Evans Larios MD
[2016-11-16] MEDS: MILK OF MAGNESIA PO SCH (20:30)
[2016-11-17] MEDS: NORCO-10 PO PRN ×2 (04:04→20:16)
[2016-11-17] MEDS: CARDIZEM PO SCH ×3 (04:04→20:16)
[2016-11-17] MEDS: NS 1,000 ML IV SCH ×2 (04:04→23:15)
[2016-11-17] MEDS: PRILOSEC PO SCH (06:04)
--- NOTE | 2016-11-17 07:31 | Diag Imaging Result Doc PS360 ---
EXAM: CHEST-PORTABLE - 11/17/2016 HISTORY: increased congestion TECHNIQUE: Portable chest 5:29 AM COMPARISON: 11/13/2016 FINDINGS: Heart size appears borderline enlarged and stable. There is mild haziness at the right base. Remainder lungs appear essentially clear. There is no substantial pleural effusion identified. There is a questionable small loculated pneumothorax at the lateral right base. There is no vascular congestion identified. IMPRESSION: Mild hazy atelectasis or infiltrate at right base. Questionable small loculated pneumothorax at lateral right base. Electronically signed by Gael Azevedo 11/17/2016 7:28 AM
[2016-11-17] MEDS: AUGMENTIN PO SCH ×2 (08:51→20:16)
[2016-11-17] MEDS: ASPIRIN PO SCH (08:51)
[2016-11-17] MEDS: MIRALAX PO SCH (08:51)
[2016-11-17] MEDS: MILK OF MAGNESIA PO SCH (20:16)
--- NOTE | 2016-11-17 20:24 | PROGRESS NOTE ---
DATE: 11/17/2016 SUBJECTIVE: Patient without any new complaints. States that he is feeling a little bit better. Denies any chest pain, palpitations. OBJECTIVE: Vital Signs: Reviewed. Temperature 97.6 degrees, pulse 189, respiratory 18, blood pressure 127/52. General: Patient is awake, alert, he is lying in bed comfortably. HEENT: Normocephalic. Neck: Supple. Cardiovascular: Irregular rhythm, but currently rate controlled. Chest: Clear, positive rhonchi. Abdomen: Soft. ASSESSMENT: 1. Atrial fibrillation with rapid ventricular response, improved. We will transition over to p.o. Cardizem and hopefully move to the floor. 2. Hypertension. 3. Chronic venous stasis bilateral lower extremities. 4. Chronic dementia. PLAN: We will continue patient in ICU for the next several hours. If stays rate controlled, then we will transition out to the floor. cc: Evans Larios MD
[2016-11-18] MEDS: PRILOSEC PO SCH ×2 (04:23→06:47)
[2016-11-18] MEDS: CARDIZEM PO SCH ×3 (04:24→20:54)
[2016-11-18] MEDS: NORCO-10 PO PRN ×3 (04:24→16:29)
[2016-11-18] MEDS: AUGMENTIN PO SCH ×2 (09:47→20:54)
[2016-11-18] MEDS: MIRALAX PO SCH (09:47)
[2016-11-18] MEDS: ASPIRIN PO SCH (09:47)
[2016-11-18] MEDS: NS 1,000 ML IV SCH (12:13)
[2016-11-18] MEDS ORDERED: GEODON IM PRN (15:29)
[2016-11-18] MEDS ORDERED: ZYPREXA ZYDIS PO ONE (15:29)
[2016-11-18] MEDS ORDERED: STERILE WATER INJ. INJ PRN (15:29)
[2016-11-18] MEDS: MILK OF MAGNESIA PO SCH (20:54)
[2016-11-18] MEDS ORDERED: LOVENOX SUBQ SCH (21:00)
[2016-11-19] MEDS: NORCO-10 PO PRN (05:07)
[2016-11-19] MEDS: CARDIZEM PO SCH ×2 (05:07→13:28)
[2016-11-19] MEDS: PRILOSEC PO SCH (06:18)
[2016-11-19] MEDS: MIRALAX PO SCH (09:48)
[2016-11-19] MEDS: AUGMENTIN PO SCH (09:48)
[2016-11-19] MEDS: ASPIRIN PO SCH (09:48)
[2016-11-19] MEDS ORDERED: CARDIZEM CD PO ONE (11:18)
--- NOTE | 2016-11-19 11:46 | DISCHARGE SUMMARY ---
ADMISSION DATE: 11/13/2016 DISCHARGE DATE: 11/19/2016 DISCHARGE DIAGNOSES: 1. Atrial fibrillation with rapid ventricular response. 2. Hypertension. 3. Dementia. 4. Chronic venous stasis. 5. Transient ischemia attack. HISTORY/HOSPITAL COURSE: Briefly this is a patient of Dr. Freed's who came in after a fall. Head CT and multiple CT's showed no acute injury. He was in RVR initially with a heart rate in the 130. He had been on Cardizem. He was placed on a Cardizem drip. He did have some hypoxia. He was not on anticoagulation besides aspirin I guess due to fall risk. He was able to be rate controlled by the . He did not have an NM. He was transitioned to p.o. He did have a UTI with gram positive cocci and he was placed on Augmentin. Clinically, he improved. He was transitioned to a p.o. Cardizem and he was moved to the floor on the . Saturations were stable 93-96%. His heart was irregular but rate controlled. Heart rate 90s to 100s, 80s to 100s and he was actually just on 60 q.8 of Cardizem. Again UTI grew out enterococcus which was sensitive to ampicillin and he was discharged on the . DISCHARGE MEDICATIONS: Augmentin 875 1 p.o. q.12h for another 7 days. He has had 4 days since he has been in the hospital, aspirin 81 daily, Cardizem CD 240 daily, folic acid daily, Percocet p.r.n., magnesium oxide and MiraLAX 17 daily. DISCHARGE CONDITION: Stable. DISCHARGE INSTRUCTIONS: He will be going to rehab long term care pharmacist. He is a patient of Dr. Freed. TIME SPENT AT DISCHARGE: This was a 32-minute discharge. cc: MD Chad Arevalo MD MTDD
[2016-11-19 12:07] VITALS: BP 127/68
== END 2016-11-19 14:05 ==
LOC: P.ED 08:01 → P.MEDSURG 11:29 → SUATTDRO 11:29 → P.MEDSURG 12:13 → P.EDIPHOLD 14:16 → P.ICU 22:24 → P.MEDSURG 11-17 20:46
PROVIDERS: ATTEND Internal Medicine

== ENCOUNTER 2017-01-03 01:19 | Inpatient (IN) ==
[2017-01-03] MEDS ORDERED: OFIRMEV 1000 MG/ISOTONIC SOLN 1,000 MG/100 ML BOTTLE IV ONE (01:50)
[2017-01-03] MEDS ORDERED: NS 1,000 ML IV ONE ×2 (01:50→02:47)
[2017-01-03] MEDS ORDERED: ZOSYN 3.375 GM in NS 50 ML IV ONE (01:51)
[2017-01-03] MEDS ORDERED: CARDIZEM IV ONE ×2 (01:51→02:42)
[2017-01-03] MEDS ORDERED: VANCOMYCIN 1 GM/NS 1 GM/250 ML IVPB IV ONE (01:52)
--- NOTE | 2017-01-03 02:13 | EKG Report ---
Test Performed on : 01/03/2017 02:03:40 AM Test Reason : a fib Blood Pressure : / mmHG Vent. Rate : 120 BPM Atrial Rate : 082 BPM P-R Int : 000 ms QRS Dur : 112 ms QT Int : 324 ms P-R-T Axes : 000 -15 -30 degrees QTc Int : 457 ms Atrial fibrillation. with rapid ventricular response. with premature ventricular or aberrantly condu cted complexes. Right bundle branch block Septal infarct , age undetermined Abnormal ECG When compared with ECG of 13-NOV-2016 09:34, Right bundle branch block is now present Septal infarct is now present Unconfirmed Result
[2017-01-03 02:21] LABS: BASO% 0.4 % (0.0-0.8); EOS# 0.04 X1000 (0.0-0.7); EOS% 0.7 % (0.0-10.0); HEMATOCRIT 32.8 % (42.0-52.0); HEMOGLOBIN 10.4 g/dL (14.0-18.0); IMM GRAN# 0.02 X1000 (0.0-0.04); IMM GRAN% 0.4 % (0.0-0.5); LYMPH# 0.21 X1000 (1.2-3.4); LYMPH% 3.9 % (20.5-51.1); MANUAL DIFF NEEDED? YES; MCHC 31.7 g/dL (33-37); MCV 91.4 FL (81-99); MONO# 0.03 X1000 (0.11-0.59); MONO% 0.6 % (1.7-9.3); PLT 192 X1000 (130-400); RBC 3.59 XMIL (4.7-6.1)
[2017-01-03 02:22] LABS: INR 1.03 (0.86-1.15); PROTIME 14.3 Seconds (12.1-15.5)
[2017-01-03 02:35] LABS: AGAP 13; ALBUMIN 3.3 g/dL (3.5-5.0); ALKALINE PHOSPHATASE 131 U/L (32-122); BUN 18 mg/dL (8-22); CALCIUM 8.3 mg/dL (8.8-10.2); CHLORIDE 100 mmol/L (98-107); CK PROFILE 54 U/L (24-204); COSMO 272; GOT 16 U/L (10-34); GPT 13 U/L (10-44); POTASSIUM 3.9 mmol/L (3.5-5.1); SODIUM 134 mmol/L (136-145); TCO2 21 mmol/L (25-35); TOTAL PROTEIN 5.8 g/dL (6.3-8.3)
[2017-01-03] MEDS ORDERED: CARDIZEM 100 MG/NS 100 MG/100 ML IVPB IV SCH (02:42)
[2017-01-03] MEDS ORDERED: ZOFRAN IV PRN (02:49)
--- NOTE | 2017-01-03 02:49 | PROVIDER DOCUMENTATION ---
This chart was entered by Yanci Cruz Scribe, acting as scribe for Som Rivera MD. HPI-General Adult - General Chief Complaint: UTI Symptoms Stated Complaint: UTI Time Seen by Provider: 01/03/17 01:37 Source: patient, EMS Allergies/Adverse Reactions: Patient Allergies Allergy/AdvReac Type Severity Reaction Status Date / Time No Known Allergies Allergy Verified 01/03/17 01:24 Home Medications: Home Medication List Medication Instructions Recorded Confirmed Last Taken Type Folic Acid 1 mg PO DAILY tablet 09/30/16 01/03/17 Unknown Rx Magnesium Hydroxide [Milk of 30 ml PO HS 10/25/16 01/03/17 Unknown History Magnesia] Aspirin EC 81 mg PO DAILY 11/14/16 01/03/17 Unknown History Diltiazem C.d. [Cardizem Cd] 240 mg PO DAILY 11/14/16 01/03/17 Unknown History Polyethylene Glycol 3350 [Miralax] 17 gm PO DAILY 11/14/16 01/03/17 Unknown History Amoxicillin/Potassium Clav 1 each PO Q12H #10 tablet 11/19/16 Unknown Rx [Augmentin 875-125 Tablet] Hydrocodone/APAP 10 mg/325 mg 1 each PO Q8H PRN PRN #30 tablet 11/19/16 Unknown Rx [Omega-10] Divalproex [Depakote Sprinkle] 375 mg PO QHS 01/03/17 01/03/17 Unknown History Duloxetine [Cymbalta] 1 cap PO DAILY 01/03/17 01/03/17 Unknown History - History of Present Illness -Gen Adult Nature of Presenting Problems: 71 Y/O M present to ER via EMS with the complain of 103 fever and confusion. [facility] [place] EMS states that pt was diagnosed with the UTI. Location of Pain/Injury: reports: none Pain Radiation: reports: no radiation Quality of Pain: reports: none Severity: reports: moderate Onset/Duration: reports: last night Timing: reports: still present Context/Activities at Onset: reports: none Modifying Factors: improves with: nothing Associated Symptoms: reports: fever/chills Review of Systems - Adult - REVIEW OF SYSTEMS - ADULT Constitutional: reports: fever. denies: chills Eyes: reports: no symptoms reported Ears, Nose, Mouth & Throat: reports: no symptoms reported Cardiovascular: reports: no symptoms reported Respiratory: reports: no symptoms reported Gastrointestinal: reports: no symptoms reported Genitourinary: reports: see HPI, other (diagnosed with UTI few days ago) Musculoskeletal: reports: no symptoms reported Integumentary: reports: no symptoms reported Neurological: reports: no symptoms reported Psychiatric: reports: see HPI, other (confused) Endocrine: reports: no symptoms reported Hematologic/Lymphatic: reports: no symptoms reported Allergic/Immunologic: reports: no symptoms reported All Other Systems: Reviewed and Negative Past History - Adult - PAST MEDICAL HISTORY-ADULT Review of Records: reports: Old Records Reviewed, Nursing Assessment Review Major Childhood Illnesses: reports: denies history Cardiovascular: reports: HTN Respiratory: reports: denies history Gastrointestinal: reports: denies history Obstetrical/Gynecological: reports: denies history Genitourinary: reports: denies history Musculoskeletal: reports: denies history Neurological: reports: denies history Endocrine/Immune: reports: denies history Other Conditions: reports: denies history - IMMUNIZATION STATUS Childhood Immunizations: See Nurse Assessment Flu Vaccine: See Nurse Assessment - FAMILY HISTORY Family History: reviewed, not pertinent Physical Exam-General - PHYSICAL EXAM-ADULT Initial Vital Signs Reviewed: Yes - CONSTITUTIONAL General Appearance: lethargic, other (confused) - EYES Eyes: PERRL/EOMI, pink conjunctivae - HEAD, EARS, NOSE, MOUTH & THROAT HENMT: normocephalic/atraumatic, moist mucous membranes, normal ENT inspection - NECK Neck: non-tender, full range of motion, supple - RESPIRATORY Respiratory: chest non-tender, lungs clear, normal breath sounds - CARDIOVASCULAR Cardiovascular: normal peripheral pulses, regular rate, rhythm, no edema - GASTROINTESTINAL (ABDOMEN) Abdominal Exam: normal bowel sounds, non tender, soft - MUSCULOSKELETAL Back Exam: normal inspection, no CVA tenderness, no vertebral tenderness Extremity: other (preferal edema). negative: swelling, tenderness - SKIN Integumentary: pallor, other (dry skin). negative: rash, swelling, tenderness Progress - PLAN OF CARE/RESULTS Progress/Plan/Lab Results: Orders Category Date Time Status Cardiac Monitoring DIRECTED Care 01/03/17 01:38 Active IV Insertion ORDERED Care 01/03/17 01:38 Completed Notify MD of + Sepsis Screen NOW Care 01/03/17 01:38 Active CHEST-PORTABLE [RAD] Stat Exams 01/03/17 01:38 Ordered BLOOD CULTURE [BLDCUL] Stat Lab 01/03/17 01:38 Ordered CBC WITH DIFF [HEME] Stat Lab 01/03/17 01:38 Ordered CK PROFILE [SP CHEM] Stat Lab 01/03/17 01:38 Ordered COMPREHENSIVE METABOLIC PANEL [CHEM] Stat Lab 01/03/17 01:38 Ordered LACTATE, PLASMA [CHEM] Stat Lab 01/03/17 01:38 Uncollected PROTIME WITH INR PL [COAG] Stat Lab 01/03/17 01:[address] [COAG] Stat Lab 01/03/17 01:38 Uncollected TROPONIN T Stat Lab 01/03/17 01:[address] W/POSS RFLX CULT [URINALYSIS] Stat Lab 01/03/17 01:38 Uncollected Result Diagrams: 01/03/17 01:50 01/03/17 01:50 - EKG 1 Time of EKG reading by physician:: 02:03 EKG Read and Signed by:: Som Rivera EKG Interpretation (*Must complete 3 of following elements*): Abnormal Rate: 120 Rhythm: A-fib with rapid ventricular response with premature ventricular complexes Comments: abnormal ECG - XRAY 1 XRAY Study: Chest Impression: Normal XRAY Interpretation: no acute findings by Dr Rivera Departure - Departure Date of Disposition Decision: 01/03/17 Time of Disposition Decision: 02:48 DIAGNOSIS: Atrial fibrillation with RVR UTI (urinary tract infection) Qualifiers: Urinary tract infection type: site unspecified Hematuria presence: without hematuria Qualified Code(s): N39.0 - Urinary tract infection, site not specified Sepsis Qualifiers: Sepsis type: sepsis due to unspecified organism Qualified Code(s): A41.9 - Sepsis, unspecified organism Disposition: ADMITTED INPATIENT 09 Certified Medical Emergency: Emergent Condition: Fair Referrals and Follow-Ups: None,PCP [Primary Care Provider] - - Critical Care Note This patient required my direct & personal management of CC.: Yes Total Time (mins): 90 Critical Care Statement: This patient required my direct personal management to treat or rule out processes, the absence of which, could potentiallly result in sudden, clinically significant life or limb threatening deterioration. Attestation - Physician/ OLEKSANDR Attestation Patient care was provided by Advanced Practice Provider:: No The physician spent face to face time with patient:: Yes Advanced Practice Provider documentation review:: Supervising physician onsite and consulted in the evaluation and care of this patient. The physician did have a face to face encounter with the patient. This chart was documented by the indicated scribe, (Yanci Cruz Scribe) and accurately reflects the services I performed and decisions made by me, Som Rivera MD, as attested by the provider's signature.
[2017-01-03 02:56] LABS: BANDS 6 % (0-1); LYMPHS 2 % (21-51); MONO 2 % (1-9)
[2017-01-03 02:57] LABS: HYPOCHROM OCCASIONAL
[2017-01-03] MEDS ORDERED: TYLENOL PR PRN (04:16)
[2017-01-03 05:14] LABS: BILIRUBIN URINE NEGATIVE (NEGATIVE); BLOOD URINE 1+ (NEGATIVE); CLARITY SL. CLOUDY (CLEAR); COLOR YELLOW; GLUCOSE URINE NEGATIVE (NEGATIVE); LEUKOCYTES URINE 2+ (NEGATIVE); NITRITE URINE POSITIVE (NEGATIVE); PROTEIN URINE TRACE mg/dL (NEGATIVE); UROBILINOGEN URINE NORMAL
[2017-01-03 05:19] LABS: URINE CULTURE PL NEEDED? YES; URINE EPITHELIAL CELLS <10 /HPF (<10); URINE RBC <10 /HPF (<10); URINE SMALL ROUND CELLS RENAL PRESENT; URINE SOURCE CATH; URINE WBC <10 /HPF (<10)
--- NOTE | 2017-01-03 06:09 | Diag Imaging Result Doc PS360 ---
EXAM: CHEST-PORTABLE HISTORY: sepsis TECHNIQUE: Portable AP COMPARISON: 11/17/2016 FINDINGS: The lungs are well expanded. Heart is not enlarged. The vessels are not distended. There are no infiltrates. Questionable small left pleural effusion. IMPRESSION: Questionable small effusion, otherwise negative exam. Electronically signed by Car Phillips 01/03/2017 6:07 AM
[2017-01-03] MEDS ORDERED: CARDIZEM CD PO SCH (10:15)
[2017-01-03] MEDS: ASPIRIN EC PO SCH (14:26)
[2017-01-03] MEDS: MIRALAX PO SCH (14:26)
[2017-01-03] MEDS: FOLIC ACID PO SCH (14:27)
[2017-01-03] MEDS: ZOSYN 3.375 GM in NS 50 ML IV SCH ×2 (14:27→20:51)
--- NOTE | 2017-01-03 14:32 | HISTORY AND PHYSICAL ---
PRIMARY CARE PHYSICIAN: At the long-term care facility where he resides. CHIEF COMPLAINT: Fever and increased confusion. HISTORY OF PRESENTING ILLNESS: This is a 71-year-old male, who presents to [facility] ER via EMS after he was found to have a temperature of a 103 degrees, increased confusion, had recently been diagnosed with a urinary tract infection apparently 2-3 days ago that has progressively worsened. When he arrived to the emergency room, he had a heart rate of 125. An EKG showed atrial fibrillation with RVR. His workup showed urinalysis with positive nitrites, 2+ white blood cells, and 4+ bacteria. His temperature was a 103 when he arrived, so he was admitted to the Intensive Care Unit for further evaluation and treatment. PAST MEDICAL HISTORY: Chronic atrial fibrillation, hypertension, GERD, venous stasis to his bilateral lower extremities and TIA. PAST SURGICAL HISTORY: Bilateral wrist and jaw surgery. FAMILY HISTORY: Noncontributory. SOCIAL HISTORY: He currently resides at [facility]. HOME MEDICATIONS: 1. Aspirin 81 mg p.o. daily. 2. Cardizem CD 240 mg p.o. daily. 3. Depakote Sprinkles 375 mg p.o. at bedtime. 4. Cymbalta 30 mg p.o. daily. 5. Folic acid 1 mg p.o. daily. 6. [place] 10 one p.o. q. 8 hours p.r.n. 7. Milk of Magnesia 30 mL p.o. at bedtime. 8. MiraLAX 17 g p.o. daily. LABORATORY DATA: White blood cell count of 5.36, hemoglobin of 10.4, hematocrit 32.8, platelets 192,000. PT and INR of 14.3 and 1.03. Sodium 134, potassium 3.9, chloride 100, CO2 of 21, BUN of 18, creatinine 0.7, glucose 134. Plasma lactate of 3.7. Urinalysis with positive nitrites, 2+ white blood cells, and 4+ bacteria. Chest x-ray that showed a questionable small effusion, otherwise, negative. An EKG that showed atrial fibrillation with RVR with PVC or aberrantly conducted complexes at 120 with a right bundle branch block. REVIEW OF SYSTEMS: Unable to obtain from patient due to confusion. PHYSICAL EXAMINATION: VITAL SIGNS: On arrival, he had a temperature of 103 degrees. Pulse was 125, respirations 24, blood pressure 133/61 saturating 93% on room air. Currently, his heart rate is in the 80s. Blood pressure is 111/67, saturating 99% on 2 L via nasal cannula. GENERAL: This is a 71-year-old male, who is lying in the bed, unable answer questions due to his confusion at this time. HEENT: The patient is noted to have a yellow bruise to his right eye brow on the proper. It looks like he has had a history of some falls in the past but unclear of when this actually occurred. Pupils are equal, round, and reactive to light. The extraocular movements are intact. The oropharynx and nares are clear. NECK: Supple. LUNGS: Clear to auscultation bilaterally with equal lung expansion and chest wall movement. HEART: Regular rate and rhythm. No murmurs, rubs, or gallops at this time. Again, he had atrial fibrillation with RVR in the 120s when he first arrived. ABDOMEN: Soft, nontender, nondistended. Bowel sounds are present x4 quadrants. EXTREMITIES: No clubbing, cyanosis, or edema. NEUROLOGICAL: The cranial nerves 2-12 appear grossly intact. ASSESSMENT: 1. Metabolic encephalopathy most likely secondary to a urinary tract infection. 2. Urinary tract infection. 3. Atrial fibrillation with rapid ventricular rate. 4. Hypertension. PLAN: He was admitted to the Intensive Care Unit. He has an indwelling Watters catheter. Regular diet. We are obtaining a urine culture. He was placed on a Cardizem drip, titrate to keep heart rate less than 100. We will continue Zosyn 3.375 g IV q.6 hours. We will continue his home medications as previously identified. This patient had to be placed in soft wrist restraints this morning, as due to his confusion he was pulling out his IV and would not leave his oxygen in place. So, for his safety we placed in soft wrist restraints bilaterally. I have a urine culture pending and will recheck a CBC and a BMP. Hopeful to wean him off of the Cardizem drip as his heart rate improved, and then we will convert him to p.o. medication. Dictated by VIRGINIA Durham for Nathan Chowdhury MD cc: VIRGINIA Durham MD I have seen and examined patient. I have provided face to face evaluation to Mr Amari who presented to Er due to AMS and suspected UTI. I have reviewed his labs and imagine studies. Will continue with the plan outlined above. Please also refer to my progress notes today which serves as a supplement to the HPI. RKQ MTDD
--- NOTE | 2017-01-03 15:41 | PROGRESS NOTE ---
DATE: 01/03/2017 SUBJECTIVE: Today Mr. Fitzpatrick refers to be doing fine. He refers that he came back because he has been falling at the rehab, and they found out that he was spiking a temperature, so he was brought in. When he came in to the emergency department, he had a temperature of 103 with a pulse rate of 125 which was atrial fibrillation. OBJECTIVE: General: Mr. Fitzpatrick is a 71-year-old very pleasant male. He is in bed. He is not in any distress. Mucosa is pink and moist. Anicteric and acyanotic. Neck is supple. Chest is clear. Cardiovascular: Irregularly irregular but rate controlled. There is no murmur. Lungs: Air entry is bilaterally reduced. There are some bilateral posterior crepitations. Abdomen: Soft, nontender. Extremities: No pedal edema. MEDICAL COLLECTIONS: The patient is awake, alert and oriented. There is no focal neurological deficit. DIAGNOSTIC DATA: WBC is 5.36, hemoglobin 10.4, platelet count 196. Chemistries were also reviewed, unremarkable. Plasma lactate was 3.7. CURRENT MEDICATIONS: 1. Atenolol. 2. Diltiazem drip. 3. Cardizem. 4. Zosyn. ASSESSMENT: 1. Altered mental status secondary to toxic encephalopathy. 2. Gram-negative delfin urinary tract infection. 3. Atrial fibrillation with rapid ventricular response. 4. Hypertension. 5. Gait abnormality. The patient has been evaluated extensively in previous admission, even by Dr. Johansen. I think there is a suspicion of possible underlying Parkinson disease. 6. Hematuria likely from traumatic manipulation of vu cath. Will hydrate and observe for now. PLAN: For now, we are going to continue with the drip to get a better pulse rate. Continue with the antibiotics. I will start the patient on metoprolol to help obtain adequate rate control. cc: Nathan Chowdhury MD MTDD
[2017-01-03] MEDS: NORCO-10 PO PRN (17:19)
[2017-01-03] MEDS: NS 1,000 ML IV SCH (18:50)
[2017-01-03] MEDS: LOPRESSOR PO SCH (20:52)
[2017-01-03] MEDS: DEPAKOTE SPRINKLE PO SCH (20:52)
[2017-01-03] MEDS: TYLENOL PO PRN (20:52)
[2017-01-03] MEDS: MILK OF MAGNESIA PO SCH (20:52)
[2017-01-04] MEDS: LOPRESSOR PO SCH ×4 (02:24→20:06)
[2017-01-04] MEDS: ZOSYN 3.375 GM in NS 50 ML IV SCH ×4 (02:24→21:51)
[2017-01-04] MEDS: NORCO-10 PO PRN ×3 (03:14→19:52)
[2017-01-04 06:10] LABS: MANUAL DIFF NEEDED? NO
[2017-01-04 06:18] LABS: BASO% 0.3 % (0.0-0.8); EOS# 0.09 X1000 (0.0-0.7); EOS% 1.3 % (0.0-10.0); HEMATOCRIT 30.8 % (42.0-52.0); HEMOGLOBIN 9.5 g/dL (14.0-18.0); IMM GRAN# 0.02 X1000 (0.0-0.04); IMM GRAN% 0.3 % (0.0-0.5); LYMPH# 0.84 X1000 (1.2-3.4); LYMPH% 12.4 % (20.5-51.1); MCH 28.8 PG (27-31); MCHC 30.8 g/dL (33-37); MCV 93.3 FL (81-99); MONO# 0.64 X1000 (0.11-0.59); MONO% 9.4 % (1.7-9.3); MPV 11.3 FL (7.4-10.4); NEUT% 76.3 % (42.2-75.2); PLT 179 X1000 (130-400)
[2017-01-04 06:40] LABS: AGAP 7; BUN 15 mg/dL (8-22); CALCIUM 7.9 mg/dL (8.8-10.2); CHLORIDE 108 mmol/L (98-107); COSMO 283; POTASSIUM 3.7 mmol/L (3.5-5.1); SODIUM 141 mmol/L (136-145); TCO2 26 mmol/L (25-35)
[2017-01-04] MEDS: MIRALAX PO SCH (08:32)
[2017-01-04] MEDS: ASPIRIN EC PO SCH (08:32)
[2017-01-04] MEDS: CARDIZEM CD PO SCH (08:32)
[2017-01-04] MEDS: FOLIC ACID PO SCH (08:32)
[2017-01-04] MEDS: CYMBALTA PO SCH (08:32)
[2017-01-04] MEDS: NS 1,000 ML IV SCH ×2 (16:23→21:53)
--- NOTE | 2017-01-04 18:13 | PROGRESS NOTE ---
DATE: 01/04/2017 SUBJECTIVE: Patient sitting in the ICU bedroom. He is in no respiratory distress. He is confused, disoriented, denies any chest pains or palpitations. Denies any other symptoms. Last night they did have difficulty with him becoming violent at times. He pulled on his Watters and since then, he has had lots of blood in the catheter. OBJECTIVE: Vital signs: Temperature 98.2, pulse 70-80, respiratory rate 18, blood pressure 155/81. General: Patient is awake, alert. He is in no distress. He is disoriented to person and place. HEENT: Normocephalic, atraumatic. SHERRY. Neck: Supple. CARDIOVASCULAR: Regular rate. No murmurs. Chest: Clear, nonlabored. Abdomen: Soft, nondistended. Extremities: Moves all extremities. ASSESSMENT: 1. Metabolic encephalopathy, secondary to urinary tract infection. 2. Urinary tract infection with culture pending. 3. Atrial fibrillation with rapid ventricular response. Currently rate controlled. He is off Cardizem drip. He is on p.o. Cardizem. 4. Hypertension, stable. PLAN: He is currently on Cardizem drip. We will continue Zosyn. Continue normal saline. Hopefully can transition to the floor. However, he will stay in the ICU when a bed is needed due to his acute confusion. We certainly need to get his Watters catheter out, but given the amount of blood coming through the catheter, I am afraid that he may have an issue and therefore we will leave the Watters in to drain overnight. We will use normal saline to attempt to prevent clots. cc: MD Nathan Blount MD
[2017-01-04] MEDS: MILK OF MAGNESIA PO SCH (20:06)
[2017-01-04] MEDS: DEPAKOTE SPRINKLE PO SCH (20:06)
[2017-01-05] MEDS: LOPRESSOR PO SCH ×4 (03:00→19:28)
[2017-01-05] MEDS: ZOSYN 3.375 GM in NS 50 ML IV SCH ×4 (04:00→23:19)
[2017-01-05] MEDS: NORCO-10 PO PRN ×2 (04:59→15:51)
[2017-01-05] MEDS: CYMBALTA PO SCH (08:23)
[2017-01-05] MEDS: CARDIZEM CD PO SCH (08:24)
[2017-01-05] MEDS: ASPIRIN EC PO SCH (08:24)
[2017-01-05] MEDS: FOLIC ACID PO SCH (08:24)
[2017-01-05] MEDS: TYLENOL PO PRN ×2 (08:27→19:28)
[2017-01-05] MEDS: MIRALAX PO SCH (08:33)
--- NOTE | 2017-01-05 19:12 | PROGRESS NOTE ---
DATE: 01/05/2017 SUBJECTIVE: Patient seen and examined. He is still confused, but much more alert and oriented today than he was yesterday. Denies any current complaints. PHYSICAL EXAM: Temperature 98.2, pulse 76, respiratory rate 16, BP 121/63. General: Patient is awake and alert, currently in no respiratory distress. He is oriented to person, place, but disoriented to reason he is in the hospital. HEENT: Normocephalic, atraumatic. Neck: Supple. No JVD. CV: Regular rate. No murmurs. Chest: Clear. Nonlabored. ASSESSMENT: 1. Patient with gram-negative rods. 2. Acute metabolic encephalopathy secondary to urinary tract infection, improved. 3. Atrial fibrillation with rapid ventricular response, currently back to rate control. 4. Hypertension. PLAN: Will saline lock. Continue Zosyn as he is growing gram-negative rods. We will follow culture. We will transfer him to the floor. Hopefully home versus rehab in the next day or 2. We will get physical therapy involved. cc: MD Nathan Blount MD
[2017-01-05] MEDS: DEPAKOTE SPRINKLE PO SCH (23:18)
[2017-01-05] MEDS: MILK OF MAGNESIA PO SCH (23:19)
[2017-01-06] MEDS: NORCO-10 PO PRN ×2 (00:52→21:33)
[2017-01-06] MEDS: ZOSYN 3.375 GM in NS 50 ML IV SCH ×4 (03:34→21:33)
[2017-01-06] MEDS: LOPRESSOR PO SCH ×2 (03:35→09:11)
[2017-01-06] MEDS: CYMBALTA PO SCH (09:11)
[2017-01-06] MEDS: ASPIRIN EC PO SCH (09:11)
[2017-01-06] MEDS: FOLIC ACID PO SCH (09:11)
[2017-01-06] MEDS: CARDIZEM CD PO SCH (09:12)
[2017-01-06] MEDS: MIRALAX PO SCH (09:13)
--- NOTE | 2017-01-06 14:29 | Diag Imaging Result Doc PS360 ---
EXAM: CT HEAD W/O CONTRAST HISTORY: encephalopathy TECHNIQUE: CT brain without contrast. Dose reduction protocol. COMPARISON: 11/13/2016 FINDINGS: No parenchymal hemorrhage. No epidural or subdural hematoma. No subarachnoid hemorrhage. There is atrophy with chronic microvascular ischemic changes. No mass identified on this noncontrasted exam. No hydrocephalus. No sinus opacification. IMPRESSION: 1.No hemorrhage. 2.Atrophy with chronic microvascular ischemic changes. Electronically signed by Car Phillips 01/06/2017 2:27 PM
--- NOTE | 2017-01-06 14:32 | PROGRESS NOTE ---
DATE: 01/06/2017 SUBJECTIVE: The patient has no focal complaints. OBJECTIVE: Vital Signs: Blood pressure 117/53, heart rate of 89, respiratory 18, temperature degrees 98.2, 97% on room air. Cardiovascular: Regular rate and rhythm. Pulmonary: Bilateral breath sounds. Clear to auscultation. Gastrointestinal: Abdomen was soft, nontender, nondistended. Bowel sounds are positive. Extremities/Neurological: The patient fell. I do not see any visible injury on his skull or skin around his head. No open lacerations or bruising. LABORATORY: His white count 6. Hemoglobin and hematocrit 9 and 30. Platelets were 179,000. Chemistries okay. Micro shows proteus mirabilis in one of his blood culture and one urine culture. 1. Proteus urinary tract infection sepsis, that seems to be resolving. Plan is to switch him to oral antibiotics once his urine cultures were clear. I think we could use Augmentin or Keflex as an option, even amoxicillin. I guess, again I think this is a secondary septicemia associated with a urinary tract infection. I do not think he necessarily needs long-term IV antibiotics. 2. Dementia. He did fall today. I am going to go and do a head scan. He did fall and hit his head. 3. Atrial fibrillation. I think is apparently stable. He is also on aspirin, so we need to make sure there is no bleeding issues. DISPOSITION: Hopefully we can get him home. I am not sure what his living situation is, because he is a wander risk. I am really not sure if he may need rehab versus home health. We will continue to follow. cc: MD Nathan Arevalo MD
[2017-01-06] MEDS: DEPAKOTE SPRINKLE PO SCH (21:33)
[2017-01-06] MEDS: MILK OF MAGNESIA PO SCH (21:34)
[2017-01-07] MEDS: ZOSYN 3.375 GM in NS 50 ML IV SCH (04:11)
[2017-01-07 06:43] LABS: HEMATOCRIT 33.9 % (42.0-52.0); HEMOGLOBIN 10.7 g/dL (14.0-18.0); MCH 28.6 PG (27-31); MCHC 31.6 g/dL (33-37); MCV 90.6 FL (81-99); RBC 3.74 XMIL (4.7-6.1)
[2017-01-07 06:46] LABS: AGAP 9; BUN 8 mg/dL (8-22); CALCIUM 8.6 mg/dL (8.8-10.2); CHLORIDE 104 mmol/L (98-107); COSMO 276; POTASSIUM 3.6 mmol/L (3.5-5.1); SODIUM 139 mmol/L (136-145); TCO2 26 mmol/L (25-35)
[2017-01-07] MEDS: CARDIZEM CD PO SCH (08:36)
[2017-01-07] MEDS: ASPIRIN EC PO SCH (08:36)
[2017-01-07] MEDS: FOLIC ACID PO SCH (08:36)
[2017-01-07] MEDS: MIRALAX PO SCH (08:36)
[2017-01-07] MEDS: CYMBALTA PO SCH (08:36)
[2017-01-07] MEDS ORDERED: TOPROL XL PO SCH (09:00)
[2017-01-07] MEDS: NORCO-10 PO PRN (09:06)
[2017-01-07] MEDS ORDERED: AMOXIL PO SCH (09:45)
[2017-01-07] MEDS ORDERED: ROCEPHIN 1 GM in NS 50 ML IV SCH (10:45)
[2017-01-07] MEDS ORDERED: NS 250 ML ONE ×2 (11:41→13:31)
[2017-01-07] MEDS ORDERED: FLOMAX PO SCH (13:00)
--- NOTE | 2017-01-07 13:31 | DISCHARGE SUMMARY ---
ADMISSION DATE: 01/03/2017 DISCHARGE DATE: DISCHARGE DIAGNOSES: 1. Proteus mirabilis urinary tract infection with sepsis. 2. Dementia. 3. Atrial fibrillation. ADMISSION DIAGNOSES: 1. Urinary tract infection. 2. Metabolic encephalopathy. 3. Atrial fibrillation. 4. Hypertension. Briefly, this 71-year-old male, presenting with a temperature of a 103 degrees and confusion. He is a long-term patient. He also had atrial fibrillation with rapid ventricular response. He was placed on a Cardizem drip. He was placed empirically on Zosyn. I think by the following day, he had clinically resolved. He was titrated off the drip slowly. He was still having some confusion. He had some bleeding from the catheter because he tried to remove his Watters catheter. His urine culture and one blood culture out of 2 was positive for Proteus mirabilis. It was sensitive to Zosyn, cefazolin, Unasyn, and amoxicillin, but not Levaquin. The patient clinically improved enough and our plan was to transition him to oral antibiotics. I discussed the case with Dr. Lopez, who insisted that since he has bacteremic he needed IV antibiotics for another 2 weeks, so we are pursuing a PICC line and Rocephin for another 2 weeks. If we are not able to manage a PICC line, additionally, the patient is very demented and will likely take out the PICC line, we will have to follow back on using oral antibiotics probably for 2 weeks, likely amoxicillin. DISCHARGE MEDICATIONS: 1. Aspirin 81 daily. 2. Rocephin 1 g daily for 2 weeks if PICC line is established; otherwise, it will be amoxicillin 500 t.i.d. for 2 weeks. 3. Cardizem 240 daily. 4. Depakote Sprinkles 375 q. Hs. 5. Cymbalta 30 daily. 6. Folic acid 1 daily. 7. [place] p.r.n. 8. Milk of Magnesia. 9. MiraLAX 17 daily. DISCHARGE CONDITION: Stable. TIME SPENT: Was 35 minute discharge. Please refer to covering physician at [facility], Chad Freed MD. cc: MD Nathan Arevalo MD
--- NOTE | 2017-01-07 13:42 | Diag Imaging Result Doc PS360 ---
EXAM: CHEST-PORTABLE HISTORY: picc line placement TECHNIQUE: AP portable at 1244 COMMENT: The heart size is the upper limits of normal. The lungs are clear. There is a PICC line on the right ascending in the internal jugular vein on the right. IMPRESSION: No acute disease. PICC line as described. Electronically signed by Trevon Nguyen 01/07/2017 1:39 PM
[2017-01-07] MEDS: TYLENOL PO PRN (14:12)
--- NOTE | 2017-01-07 14:29 | Diag Imaging Result Doc PS360 ---
EXAM: CHEST-PORTABLE HISTORY: PICC line placement TECHNIQUE: Portable chest COMMENT: There is a PICC line on the left with its tip in the area of the azygos vein in the superior vena cava. The right PICC line has been removed. The inspiration is somewhat suboptimal. There is cardiomegaly. IMPRESSION: Poor inspiration. Mild cardiomegaly. Electronically signed by Trevon Nguyen 01/07/2017 2:27 PM
[2017-01-07 16:42] VITALS: BP 116/59
== END 2017-01-07 17:55 ==
LOC: P.ED 01:19 → P.ICU 03:33 → SUATTDRO 03:33 → P.MEDSURG 01-05 09:39
PROVIDERS: ADMIT Internal Medicine; ATTEND Internal Medicine

== ENCOUNTER 2018-08-24 09:22 | Inpatient (IN) ==
[~2018-08-24 09:22] MED LIST: DIPHTHERIA/TETANUS ADULT IM ONE
[2018-08-24 09:52] LABS: BASO# 0.04 X1000 (0.0-0.2); BASO% 0.4 % (0.0-0.8); EOS# 0.09 X1000 (0.0-0.7); HEMATOCRIT 41.3 % (42.0-52.0); HEMOGLOBIN 14.2 g/dL (14.0-18.0); IMM GRAN# 0.07 X1000 (0.0-0.04); IMM GRAN% 0.7 % (0.0-0.5); LYMPH# 0.79 X1000 (1.2-3.4); LYMPH% 8.4 % (20.5-51.1); MCHC 34.4 g/dL (33-37); MONO# 0.47 X1000 (0.11-0.59); NEUT# 7.92 X1000 (1.4-6.5); NEUT% 84.5 % (42.2-75.2); PLT 195 X1000 (130-400); RDW 15.8 % (11.5-14.5); WBC 9.38 X1000 (4.8-10.8)
[2018-08-24 10:05] LABS: AGAP 13; ALBUMIN 4.5 g/dL (3.5-5.0); ALKALINE PHOSPHATASE 97 U/L (32-122); BUN 14 mg/dL (8-22); CALCIUM 9.5 mg/dL (8.8-10.2); CHLORIDE 104 mmol/L (98-107); COSMO 289; CREATININE 0.6 mg/dL (0.7-1.2); ESTIMATED GFR > 60; GLUCOSE 98 mg/dL (70-104); GOT 13 U/L (10-34); GPT 15 U/L (10-44); POTASSIUM 4.1 mmol/L (3.5-5.1); SODIUM 145 mmol/L (136-145); TCO2 28 mmol/L (25-35); TOTAL PROTEIN 7.4 g/dL (6.3-8.3)
--- NOTE | 2018-08-24 10:08 | EKG Report ---
Test Performed on : 08/24/2018 09:10:16 AM Test Reason : ams Blood Pressure : / mmHG Vent. Rate : 111 BPM Atrial Rate : 082 BPM P-R Int : 000 ms QRS Dur : 112 ms QT Int : 350 ms P-R-T Axes : 000 -32 030 degrees QTc Int : 476 ms Atrial fibrillation. with rapid ventricular response. Left axis deviation Low voltage QRS Right bundle branch block Inferior infarct , age undetermined Abnormal ECG When compared with ECG of 18-JUN-2017 09:50, Vent. rate has increased BY 43 BPM Inferior infarct is now present T wave inversion now evident in Anterior leads Unconfirmed Result
--- NOTE | 2018-08-24 10:29 | Diag Imaging Result Doc PS360 ---
EXAM: CT HEAD/C-SPINE W/O CONTRAST INDICATION: head injury/pain TECHNIQUE: This exam was performed using automated exposure control, adjustment of mA or kV according to patient size, and/or use of iterative reconstruction technique. COMPARISON: 03/21/2018 FINDINGS: Head: There is stable moderate diffuse brain atrophy and stable mild periventricular white matter microangiopathy. There is no definite acute infarct given the limited sensitivity of CT versus MRI. There is no discrete intracranial mass, mass effect, or intracranial hemorrhage. There is right periorbital soft tissue edema indicating contusion. The globe is intact and there is no retrobulbar hematoma. The bony structures are grossly intact. C-spine: There is stable moderate degenerative facet arthropathy and degenerative disc disease at multiple levels. Otherwise, there is no discrete fracture, subluxation, or intrinsic osseous lesion. The surrounding soft tissues are essentially unremarkable. IMPRESSION: 1.Stable chronic intracranial changes but no evidence of acute intracranial pathology. 2.Right periorbital soft tissue contusion. 3.Stable multilevel degenerative arthropathy but no evidence of fracture or other definite acute C-spine injury. Electronically signed by Ziggy Cooper 08/24/2018 10:27 AM
--- NOTE | 2018-08-24 10:31 | Diag Imaging Result Doc PS360 ---
KNEE 3 VIEWS RIGHT - 08/24/2018 INDICATION: right knee pain TECHNIQUE: Three views COMPARISON: 09/25/2016 FINDINGS: There is some mild cystic osteoporosis. No fracture or dislocation. Joint spaces are well preserved. No joint effusion. There is advanced vascular calcification of the femoral and popliteal arteries. IMPRESSION: No acute disease. Electronically signed by Jerman Desai 08/24/2018 10:29 AM
[2018-08-24 10:43] LABS: URINE SOURCE CATH
--- NOTE | 2018-08-24 10:58 | Diag Imaging Result Doc PS360 ---
EXAM: CT T-SPINE/L-SPINE W/O CON INDICATION: fall injury TECHNIQUE: This exam was performed using automated exposure control, adjustment of mA or kV according to patient size, and/or use of iterative reconstruction technique. COMPARISON: No prior dedicated T-spine or L-spine CT is available for comparison. FINDINGS: T-spine: There is a mild anterior compression deformity involving the T1 vertebral body. The acuity is unknown but it is likely late subacute or chronic given that there is sclerosis at the superior endplate. However, note that it was not present on a prior CT of the C-spine dated 03/21/2018. There is multilevel moderate degenerative disc disease throughout the T-spine with ventral marginal osteophytes at multiple lumbar. The central canal is largely patent. There is mild central canal narrowing due to small osteophytes at a few of the lower thoracic levels. No other discrete fracture, subluxation, or significant intrinsic osseous lesion is appreciated. Surrounding soft tissues are essentially unremarkable. L-spine: The bones are osteopenic. There are compression deformities at L3, L4, and L5, most significant at L3. They are of unknown acuity but were not present on the prior CT of the pelvis dated 06/13/2017. There is extensive multilevel degenerative disc disease and facet arthropathy. This is causing central canal and neuroforaminal narrowing at multiple levels including fairly severe central canal stenosis at L4-5 and L5-S1. No other discrete fracture or subluxation is appreciated. There is aortic atherosclerotic calcification. There is a rectal fecal impaction noted incidentally with the impacted rectum measuring up to 9.6 cm in diameter. IMPRESSION: 1.Multilevel degenerative arthropathy throughout the T-spine and L-spine with compression deformities at T1, L3, L4, and L5 that are of unknown acuity but were not present on previous studies from 2018. 2.Incidental rectal fecal impaction. Electronically signed by Ziggy Cooper 08/24/2018 10:56 AM
[2018-08-24 11:07] LABS: BILIRUBIN URINE NEGATIVE (NEGATIVE); BLOOD URINE NEGATIVE (NEGATIVE); GLUCOSE URINE NEGATIVE (NEGATIVE); KETONE URINE NEGATIVE (NEGATIVE); LEUKOCYTES URINE NEGATIVE (NEGATIVE); NITRITE URINE NEGATIVE (NEGATIVE); PROTEIN URINE NEGATIVE (NEGATIVE); UROBILINOGEN URINE NORMAL
[2018-08-24 11:08] LABS: CLARITY CLEAR (CLEAR); COLOR YELLOW; URINE BACTERIA NEGATIVE /HFP; URINE CAST NONE SEEN /LPF; URINE CRYSTAL NONE SEEN /HPF; URINE EPITHELIAL CELLS <10 /HPF (<10); URINE RBC <10 /HPF (<10); URINE WBC <10 /HPF (<10); URINE YEAST NONE SEEN /HPF
[2018-08-24] MEDS ORDERED: FLEET ENEMA PR ONE (11:53)
[2018-08-24] MEDS: CARDIZEM 125 MG/D5W 125 MG/125 ML IVPB IV SCH ×2 (12:18→22:11)
[2018-08-24] MEDS ORDERED: XYLOCAINE 1% INJ ONE (12:52)
[2018-08-24] MEDS ORDERED: XYLOCAINE-MPF 1% ONE (13:06)
--- NOTE | 2018-08-24 13:11 | PROVIDER DOCUMENTATION ---
This chart was entered by Benita Lee Scribe, acting as scribe for Jorge Pandey MD. HPI-Musculoskeletal Pain/Inj <Vega Cervantes - Last Filed: 08/24/18 13:26> - GENERAL Source: patient, EMS - HX OF PRESENT ILLNESS-MUSKULOSKELTAL Quality of Pain: reports: aching Severity in ED: moderate Onset/Duration: this morning Timing: still present Modifying Factors: improves with: immobilization. worse with: movement Any recent injury?: Yes (fall) Locality of Occurance: Other (SNF) Similar Symptoms Previously?: No Recently seen or treated by another doctor?: No - FALL INJURY Location of Pain/Injury: reports: head, face, neck, back Reason for Fall: reports: unknown Loss of Consciousness: no loss of consciousness Injury Associated Symptoms: reports: back/neck pain, muscle aches. denies: chest pain, headaches, shortness of breath, snap/crack/pop sensation, pain with inspiration - BACK & NECK PAIN/INJURY Back/Neck Pain Location: reports: C-spine, lumbar spine Context / Method of Injury: reports: fall Associated Symptoms: reports: lower back pain History of Chronic Neck or Back Pain?: No <Jorge Pandey - Last Filed: 08/24/18 14:56> - GENERAL Chief Complaint: Fall Stated Complaint: FALL Time Seen by Provider: 08/24/18 09:25 - HX OF PRESENT ILLNESS-MUSKULOSKELTAL Nature of Presenting Problem: 73 yowm presents to the ed via ems post fall this am. pt was found in the floor this am by shelter staff. on exam pt can follow orders but has mild slurring of speech and mild confusion. pt does have hx of dementia and afib. pt has 4cm laceration to rt eyebrow with skin tear below the laceration and smaller laceration to occipital head. pt has bandage in place on exam and was placed in a c-collar in triage due to c/o posterior neck pain and back pain (Jorge Pandey) Review of Systems - Adult - REVIEW OF SYSTEMS - ADULT ROS:: limited per condition Constitutional: denies: chills, fever Eyes: reports: no symptoms reported Ears, Nose, Mouth & Throat: reports: no symptoms reported Cardiovascular: denies: chest pain, palpitations, syncope Respiratory: reports: see HPI, cough. denies: shortness of breath, wheezing Gastrointestinal: denies: diarrhea, nausea, vomiting Genitourinary: reports: no symptoms reported Musculoskeletal: reports: see HPI, back pain, muscle aches, neck pain Integumentary: reports: no symptoms reported Neurological: reports: see HPI, slurred speech. denies: dizziness/vertigo, headache/migraines, syncope, tremors Psychiatric: reports: no symptoms reported Endocrine: reports: no symptoms reported Hematologic/Lymphatic: reports: no symptoms reported Allergic/Immunologic: reports: no symptoms reported All Other Systems: Reviewed and Negative <Jorge Pandey - Last Filed: 08/24/18 14:56> Past History - Adult - PAST MEDICAL HISTORY-ADULT Review of Records: reports: Nursing Assessment Review, Medications Reviewed Major Childhood Illnesses: reports: denies history Cardiovascular: reports: A-Fib, CHF, HTN Respiratory: reports: denies history Gastrointestinal: reports: GERD Genitourinary: reports: denies history, other (benign prostatic hyperplasia) Musculoskeletal: reports: arthritis Neurological: reports: CVA, dementia Psychiatric: reports: denies history Endocrine/Immune: reports: denies history Other Conditions: reports: denies history - PRIOR SURGERIES/PROCEDURES Surgical/Procedure History: reports: none - IMMUNIZATION STATUS Childhood Immunizations: See Nurse Assessment Flu Vaccine: See Nurse Assessment - FAMILY HISTORY Family History: reviewed, not pertinent - SOCIAL HISTORY Smoking: denies Substance Use: denies Living Situation: care facility <Jorge Pandey - Last Filed: 08/24/18 14:56> Physical Exam-Injury Related - Physical Exam-Injury Related Initial Vital Signs Reviewed: Yes General Appearance: alert, mild distress Immobilization?: C-collar, applied in ED Eyes: PERRL/EOMI, pink conjunctivae Head, Ears, Nose, Mouth & Throat: moist mucous membranes, other (no teeth) Neck: tender lateral (posterior pt is in c-collar) Respiratory: chest non-tender, rhonchi (left side), increased rate (23) Cardiovascular: normal peripheral pulses, tachycardia (123) Chest/Breast: deferred Abdominal Exam: normal bowel sounds, non tender, soft Male Genitalia: deferred Rectal Exam: deferred Hemoccult Exam: deferred Lymphatic: no adenopathy Back Exam: normal inspection, other (lumbar pain) Extremity: no pedal edema, no calf tenderness, normal capillary refill, pelvis stable Integumentary: normal color, warm/dry, ecchymosis, tenderness (head secondary to laceration), laceration (rt eyebrow and occipital head) Neurologic: no motor/sensory deficits, other (mild slurred speech and mmild confusion). negative: facial droop, focal weakness, motor weakness Psych/Mental Status: other (follows orderes) - Glascow Coma Score Best Eye Response ([place]): (4) open spontaneously Best Verbal Response ([place]): (4) confused conversation Best Motor Response ([place]): (6) obeys commands [place] Total: 14 <Jorge Pandey - Last Filed: 08/24/18 14:56> Progress - PLAN OF CARE/RESULTS Result Diagrams: 08/24/18 09:15 08/24/18 09:15 <Vega Cervantes - Last Filed: 08/24/18 13:26> - PLAN OF CARE/RESULTS Result Diagrams: 08/24/18 09:15 08/24/18 09:15 - REASSESSMENT Reassessment #1 Time Reassessed: 09:59 (HR more elevated with dr at bedside) Status: worsening Reassessment #2 Time Reassessed: 12:28 (pt now on cardizem drip for afib) Reassessment Comment: at bedside - EKG 1 Time of EKG reading by physician:: 09:10 EKG Read and Signed by:: Jorge Pandey EKG Interpretation (*Must complete 3 of following elements*): Abnormal Rate: 111 Rhythm: afib with rvr [place]: left (deviation) QRS: RBB, other (low voltage QRS) NM Interval: normal ST Wave: normal Comments: inferior infarct,age undetermined - XRAY 1 XRAY: Right XRAY Study: Knee Impression: See EMR Report (KNEE 3 VIEWS RIGHT - 08/24/2018 INDICATION: right knee pain TECHNIQUE: Three views COMPARISON: 09/25/2016 FINDINGS: There is some mild cystic osteoporosis. No fracture or dislocation. Joint spaces are well preserved. No joint effusion. There is advanced vascular calcification of the femoral and popliteal arteries. IMPRESSION: No acute disease. Electronically signed by Jerman Desai 08/24/2018 10:29 AM 08/24/18 1029 Interpreting Physician: Jerman Desai MD Dictated Date/Time: 08/24/18 1026 cc: Jorge Pandey MD; None,PCP) - CT/MRI 1 CT Study: Cervical Spine, Head Impression: See EMR Report (EXAM: CT HEAD/C-SPINE W/O CONTRAST INDICATION: head injury/pain TECHNIQUE: This exam was performed using automated exposure control, adjustment of mA or kV according to patient size, and/or use of iterative reconstruction technique. COMPARISON: 03/21/2018 FINDINGS: Head: There is stable moderate diffuse brain atrophy and stable mild periventricular white matter microangiopathy. There is no definite acute infarct given the limited sensitivity of CT versus MRI. There is no discrete intracranial mass, mass effect, or intracranial hemorrhage. There is right periorbital soft tissue edema indicating contusion. The globe is intact and there is no retrobulbar hematoma. The bony structures are grossly intact. C-spine: There is stable moderate degenerative facet arthropathy and degenerative disc disease at multiple levels. Otherwise, there is no discrete fracture, subluxation, or intrinsic osseous lesion. The surrounding soft tissues are essentially unremarkable. IMPRESSION: 1.Stable chronic intracranial changes but no evidence of acute intracranial pathology. 2.Right periorbital soft tissue contusion. 3.Stable multilevel degenerative arthropathy but no evidence of fracture or other definite acute C-spine injury. Electronically signed by Ziggy Cooper 08/24/2018 10:27 AM 08/24/18 1027 Interpreting Physician: Ziggy Cooper MD Dictated Date/Time: 08/24/18 1020 cc: Jorge Pandey MD; None,PCP) 2 CT Study: Lumbar Spine Impression: See EMR Report (EXAM: CT T-SPINE/L-SPINE W/O CON INDICATION: fall injury TECHNIQUE: This exam was performed using automated exposure control, adjustment of mA or kV according to patient size, and/or use of iterative reconstruction technique. COMPARISON: No prior dedicated T-spine or L-spine CT is available for comparison. FINDINGS: T-spine: There is a mild anterior compression deformity involving the T1 vertebral body. The acuity is unknown but it is likely late subacute or chronic given that there is sclerosis at the superior endplate. However, note that it was not present on a prior CT of the C- spine dated 03/21/2018. There is multilevel moderate degenerative disc disease throughout the T-spine with ventral marginal osteophytes at multiple lumbar. The central canal is largely patent. There is mild central canal narrowing due to small osteophytes at a few of the lower thoracic levels. No other discrete fracture, subluxation, or significant intrinsic osseous lesion is appreciated. Surrounding soft tissues are essentially unremarkable. L-spine: The bones are osteopenic. There are compression deformities at L3, L4, and L5, most significant at L3. They are of unknown acuity but were not present on the prior CT of the pelvis dated 06/13/2017. There is extensive multilevel degenerative disc disease and facet arthropathy. This is causing central canal and neuroforaminal narrowing at multiple levels including fairly severe central canal stenosis at L4-5 and L5-S1. No other discrete fracture or subluxation is appreciated. There is aortic atherosclerotic calcification. There is a rectal fecal impaction noted incidentally with the impacted rectum measuring up to 9.6 cm in diameter. IMPRESSION: 1.Multilevel degenerative arthropathy throughout the T-spine and L-spine with compression deformities at T1, L3, L4, and L5 that are of unknown acuity but were not present on previous studies from 2018. 2.Incidental rectal fecal impaction. Electronically signed by Ziggy Cooper 08/24/2018 10:56 AM 08/24/18 1056 Interpreting Physician: Ziggy Cooper MD Dictated Date/Time: 08/24/18 1041 cc: Jorge Pandey MD; None,PCP) - CONSULTS/PCP/HOSPITALIST Notification #1 *Consult/PCP/Hospitalist*: hospitalist dr cabello Time Discussed: 13:00 Consult Disposition: Admit <Jorge Pandey - Last Filed: 08/24/18 14:56> - PLAN OF CARE/RESULTS Progress/Plan/Lab Results: Vital Signs - 8 hr 08/24/18 08:59 08/24/18 09:37 08/24/18 11:21 Temperature 98.1 F Pulse Rate 123 H 116 H 154 H Respiratory Rate 23 22 21 Blood Pressure 126/95 119/77 110/82 O2 Sat by Pulse Oximetry 94 L 95 96 08/24/18 12:34 08/24/18 13:11 Temperature Pulse Rate 126 H 140 H Respiratory Rate 22 22 Blood Pressure 122/74 137/99 O2 Sat by Pulse Oximetry 95 Laboratory Results - last 24 hr 08/24/18 08/24/18 08/24/18 09:15 09:15 09:15 WBC 9.38 RBC 4.30 L Hgb 14.2 Hct 41.3 L MCV 96.0 MCH 33.0 H MCHC 34.4 RDW Std Deviation 15.8 H Plt Count 195 MPV 13.0 H Immature Gran % (Auto) 0.7 H Neut % (Auto) 84.5 H Lymph % (Auto) 8.4 L [place] % (Auto) 5.0 Eos % (Auto) 1.0 Baso % (Auto) 0.4 Immature Gran # (Auto) 0.07 H Neut # (Auto) 7.92 H Lymph # (Auto) 0.79 L [place] # (Auto) 0.47 Eos # (Auto) 0.09 Baso # (Auto) 0.04 Sodium 145 Potassium 4.1 Chloride 104 Carbon Dioxide 28 Anion Gap 13 BUN 14 Creatinine 0.6 L Estimated GFR/1.73 m2 > 60 BUN/Creatinine Ratio 23 Glucose 98 Calculated Osmolality 289 Calcium 9.5 Total Bilirubin 0.50 AST 13 ALT 15 Alkaline Phosphatase 97 Troponin T < 0.010 Total Protein 7.4 Albumin 4.5 Globulin 3.0 Albumin/Globulin Ratio 2.0 Urine Source Urine Color Urine Clarity Urine Turbidity Urine pH Ur Specific [place] Urine Protein Ur Glucose (Stick) Urine Ketones Ur Ketones (Stick) Urine Blood Urine Nitrite Urine Bilirubin Urine Urobilinogen Urobilinogen Dipstick Urine Leukocytes Urine WBC (Auto) Urine RBC (Auto) U Epithel Cells (Auto) Urine Bacteria (Auto) Urine Microscopic RBC Urine WBC Urine Microscopic WBC Ur Epithelial Cells Urine Crystals Small Round Cells Urine Bacteria Urine Casts Urine Yeast Urine Glucose 08/24/18 08/24/18 10:28 10:28 WBC RBC Hgb Hct MCV MCH MCHC RDW Std Deviation Plt Count MPV Immature Gran % (Auto) Neut % (Auto) Lymph % (Auto) [place] % (Auto) Eos % (Auto) Baso % (Auto) Immature Gran # (Auto) Neut # (Auto) Lymph # (Auto) [place] # (Auto) Eos # (Auto) Baso # (Auto) Sodium Potassium Chloride Carbon Dioxide Anion Gap BUN Creatinine Estimated GFR/1.73 m2 BUN/Creatinine Ratio Glucose Calculated Osmolality Calcium Total Bilirubin AST ALT Alkaline Phosphatase Troponin T Total Protein Albumin Globulin Albumin/Globulin Ratio Urine Source Cancelled CATH Urine Color Cancelled YELLOW Urine Clarity CLEAR Urine Turbidity Cancelled Urine pH Cancelled 7.0 Ur Specific [place] Cancelled 1.000 Urine Protein Cancelled NEGATIVE Ur Glucose (Stick) Cancelled Urine Ketones NEGATIVE Ur Ketones (Stick) Cancelled Urine Blood Cancelled NEGATIVE Urine Nitrite Cancelled NEGATIVE Urine Bilirubin Cancelled NEGATIVE Urine Urobilinogen NORMAL Urobilinogen Dipstick Cancelled Urine Leukocytes Cancelled Urine WBC (Auto) Cancelled Urine RBC (Auto) Cancelled U Epithel Cells (Auto) Cancelled Urine Bacteria (Auto) Cancelled Urine Microscopic RBC <10 Urine WBC NEGATIVE Urine Microscopic WBC <10 Ur Epithelial Cells <10 Urine Crystals NONE SEEN Small Round Cells Urine Bacteria NEGATIVE Urine Casts NONE SEEN Urine Yeast NONE SEEN Urine Glucose NEGATIVE Orders Category Date Time Status Admit - [facility] Routine AdmDCTranf 08/24/18 13:11 Active Disimpaction DIRECTED Care 08/24/18 11:13 Active Nursing- Obtain EKG ONCE Care 08/24/18 09:[address] HEAD/C-SPINE W/O CONTRAST [CT] Stat Exams 08/24/18 09:[address] T-SPINE/L-SPINE W/O CON [CT] Stat Exams 08/24/18 09:36 Completed KNEE 3 VIEWS RIGHT [RAD] Stat Exams 08/24/18 09:36 Completed cxr [CHEST-1 VIEW] [RAD] Stat Exams 08/24/18 13:14 Completed CBC WITH DIFF [HEME] Stat Lab 08/24/18 09:15 Completed COMPREHENSIVE METABOLIC PANEL [CHEM] Stat Lab 08/24/18 09:15 Completed TROPONIN T Stat Lab 08/24/18 09:[address] W/POSS RFLX CULT [URINALYSIS] Stat Lab 08/24/18 10:28 Completed Diltiazem 125 mg/D5w [Cardizem 125 mg/D5w] Med 08/24/18 11:45 Active 125 mg in 125 ml IV As Directed mls/hr Diphtheria/Tetanus Adult Med 08/24/18 09:17 Discontinued 0.5 ml IM .ONCE ONE Lidocaine 1% Pf [Xylocaine-Mpf 1%] Med 08/24/18 13:06 Discontinued 30 ml .ROUTE .STK-MED ONE Lidocaine 1% [Xylocaine 1%] Med 08/24/18 12:52 Discontinued 20 ml INJ NOW ONE Na Phos,M-B/Na Phos,Di-Ba [Fleet Enema] Med 08/24/18 11:53 Discontinued 133 ml NM NOW ONE Suture Tray (General Purpose) Stat Oth 08/24/18 12:41 Active EKG [EKG] Stat Ther 08/24/18 09:16 Draft Transfer/Admit Order [TRANSFER] Routine Transfer 08/24/18 13:15 Ordered Procedures - LACERATION/WOUND REPAIR/FB Right Eye Wound Location: Other: Above right eye Wound Length: 3 cm Wound's Depth, Shape: superficial, irregular, contused tissue Wound Explored/Foreign Body: clean, no foreign body found Irrigated with Saline?: Yes Prepped with: Hibiclens Anesthetic: 1%, Lidocaine/Xylocaine Volume of Anesthetic (ml's): 5 Wound Repaired with: Sutures Suture Size/Type: 5.0, Non-Absorbable, Nylon Number of Sutures: 7 Layer Closure?: No Sterile Dressing Applied?: No Splint Applied?: No Sling Applied?: No Post Procedure Neurovascular Exam: Intact <Vega Cervantes - Last Filed: 08/24/18 13:26> - LACERATION/WOUND REPAIR/FB Right Lower See Other Wound Location: Other: rt lower eyelid Wound Length: 2 cm Wound's Depth, Shape: superficial Wound Explored/Foreign Body: clean Irrigated with Saline?: Yes Prepped with: Hibiclens Anesthetic: 1%, Lidocaine/Xylocaine Volume of Anesthetic (ml's): 2 Wound Debrided: moderate Wound Repaired with: Sutures Suture Size/Type: 5.0 Number of Sutures: 3 Layer Closure?: No Post Procedure Neurovascular Exam: Intact <Jorge Pandey - Last Filed: 08/24/18 14:56> Departure <Vega Cervantes - Last Filed: 08/24/18 13:26> - Departure Date of Disposition Decision: 08/24/18 Time of Disposition Decision: 12:42 Certified Medical Emergency: Emergent - Critical Care Note This patient required my direct & personal management of CC.: Yes Total Time (mins): 39 Critical Care Statement: This patient required my direct personal management to treat or rule out processes, the absence of which, could potentiallly result in sudden, clinically significant life or limb threatening deterioration. <Jorge Pandey - Last Filed: 08/24/18 14:56> - Departure DIAGNOSIS: Atrial fibrillation with RVR, Frequent falls, Compression fracture, Facial laceration, Fall, A-fib, Fecal impaction Disposition: ADMITTED INPATIENT 09 Condition: Good Attestation - Physician/ OLEKSANDR Attestation Patient care was provided by Advanced Practice Provider:: No The physician spent face to face time with patient:: Yes Advanced Practice Provider documentation review:: Supervising physician onsite and consulted in the evaluation and care of this patient. The physician did have a face to face encounter with the patient. <Jorge Pandey - Last Filed: 08/24/18 14:56> This chart was documented by the indicated scribe, (Benita Lee Scribe) and accurately reflects the services I performed and decisions made by me, Jorge Pandey MD, as attested by the provider's signature.
--- NOTE | 2018-08-24 13:46 | Diag Imaging Result Doc PS360 ---
EXAM: CHEST-1 VIEW HISTORY: a-fib TECHNIQUE: Chest single view COMPARISON: 03/12/2017 FINDINGS: The lungs are well expanded. The heart is not enlarged. The vessels are not distended. There are no infiltrates. No effusion identified. Old right rib fractures. IMPRESSION: No acute abnormality. Electronically signed by Car Phillips 08/24/2018 1:43 PM
[2018-08-24] MEDS ORDERED: DERMABOND TOP ONE (13:59)
--- NOTE | 2018-08-24 15:43 | HISTORY AND PHYSICAL ---
PRIMARY CARE PHYSICIAN: Is listed at none but resides in a [facility] facility and has a physician there that follows him. CHIEF COMPLAINT: A fall this morning, found in floor by nursing staff. Also was found to be in atrial fibrillation with RVR in the 120s to 140s. HISTORY OF PRESENTING ILLNESS: This is a 73-year-old male who presents to [facility] ER via EMS after he was found in the floor this morning by nursing staff and noted to have a 4 cm laceration to his right eyebrow and a laceration to his right under eye area that was smaller and a small laceration to the occipital head. Apparently went to stand up and chair rolled out from under him and he fell. When he arrived he was noted to have a heart rate at 123. EKG showed atrial fibrillation with rapid ventricular response. He went as high as 154 in the emergency room was placed on a Cardizem drip. Sutures were applied to his right eyebrow area and underneath his right eye. He is noted to have dark purple bruising and a hematoma to his right eyebrow area also secondary to the fall. We did a head and cervical spine CT that showed stable chronic intracranial changes, right periorbital soft- tissue contusion, stable multilevel degenerative arthropathy but no evidence of fracture or other definite acute C- spine injury. We did a knee x-ray of his right knee that showed no acute disease and we did a CT of the T-spine and L-spine with multilevel degenerative arthropathy with compression deformities at T1, L3, L4 and L5 that are of unknown acuity but were not present on the previous study in 2018 and an incidental rectal fecal impaction. They did a digital impaction removal and he will be admitted to the intensive care unit and was also given a 1 time dose of a Fleet's enema in the emergency room. PAST MEDICAL HISTORY: CHF, atrial fibrillation, dementia, hypertension, GERD, history of TIAs, BPH and recurrent UTIs. PAST SURGICAL HISTORY: Of a polypectomy, a wrist surgery, jaw surgery and placement of a suprapubic catheter. FAMILY HISTORY: Reviewed and noncontributory. SOCIAL HISTORY: Currently lives in long-term care facility. No tobacco, alcohol or illicit drugs noted. ALLERGIES: He has no known drug allergies. HOME MEDICATIONS: A current list will need to be obtained and reconciled, reviewed and restarted as appropriate. I have placed an order for nursing to update and confirm home medications. LABORATORY DATA: Showed a white blood cell count of 9.38, hemoglobin 14.2, hematocrit 41.3, platelets 195,000. Sodium 145, potassium 4.1, chloride 104, CO2 28, BUN of 14, creatinine 0.6, glucose 98. Troponin less than 0.010. Urinalysis was negative. Chest x-ray showed no acute abnormality. Thoracic and lumbar spine CT showed multilevel degenerative arthropathy throughout the T-spine and L-spine with compression deformities at T1, L3, L4 and L5 that are of unknown acuity but were not present on previous studies from 2018, an incidental rectal fecal impaction. Right knee x-ray showed no acute disease. No fracture or dislocation. Head and cervical spine CT showed stable chronic intracranial changes. No evidence of acute intracranial pathology, a right periorbital soft tissue contusion and stable multilevel degenerative arthropathy but no evidence of fracture or other definite acute C-spine injury. EKG showed atrial fibrillation with RVR at 111 but his heart rate did go as high as 154 on telemetry. REVIEW OF SYSTEMS: He denied any fever, chills, blurred vision. He has pain to his right eye from the fall and laceration. Denied any chest pain, coughing, shortness of breath. He denied any abdominal pain, constipation, diarrhea, burning or hurting with urination. PHYSICAL EXAMINATION: On arrival he had a temperature of 98.1 degrees, pulse 123, respirations 23, blood pressure 126/95, saturating 94% on room air. GENERAL: This is a 73-year-old male who is lying in the bed. HEENT: Patient is noted to have a laceration to his right eyebrow approximately 4 cm and to his occipital head. He also has a small laceration underneath his right lower lashes that has been sutured per the ER physician. He has purple discoloration and a hematoma to his right eyebrow and over his right eyelid. ENT inspection is normal. Oropharynx and nares are clear. Pupils are equal, round, reactive to light, accommodation and extraocular movements are intact. NECK: Normal inspection, normal range of motion. LUNGS: Clear to auscultation bilaterally with equal lung expansion and chest wall movement. HEART: With irregular rate and rhythm. No murmurs, rubs or gallops noted. ABDOMEN: Soft, nontender, nondistended. Bowel sounds are present x4 quadrants. MUSCULOSKELETAL: He had a 4/5 strength x4 extremities. NEUROLOGICAL: The cranial nerves 2-12 appear grossly intact. ASSESSMENT: 1. Atrial fibrillation with rapid ventricular response. 2. Fall. 3. A right periorbital soft tissue contusion with laceration to right eyebrow and under right eye requiring suturing. 4. Fecal impaction. 5. Compression fracture . PLAN: He will be admitted to the intensive care unit, placed on O2, telemetry. We are going to obtain an echocardiogram in the a.m., place on a Cardizem drip per protocol. The patient was disimpacted and given a Fleet's enema in the emergency room. We will monitor the results of that. Place him on a healthy heart diet. Recheck a CBC, BMP in the a.m. and further orders after seen by attending. Dictated by VIRGINIA Durham for Augie Wilson MD Addendum: Patient seen and examined by myself. Agree with VIRGINIA note. It reflects my assessment and plan. Patient is being admitted to hospital for A fib with RVR. He was brought to ER because of a fall with face lacerations but he was found to be on atrial fibrillation so will start Cardizem drip and will send him to ICU for better monitoring. Will monitor patient closely. For compression fracture will optimize pain medications. cc: VIRGINIA Durham MD [facility]
[2018-08-24] MEDS ORDERED: TYLENOL PO PRN (21:36)
[2018-08-24] MEDS: STERILE WATER INJ. INJ PRN (22:10)
[2018-08-24] MEDS: GEODON IM SCH (22:10)
[2018-08-24] MEDS: DEPAKOTE SPRINKLE PO SCH (22:16)
[2018-08-25 06:45] LABS: BASO# 0.04 X1000 (0.0-0.2); BASO% 0.5 % (0.0-0.8); EOS# 0.16 X1000 (0.0-0.7); EOS% 1.8 % (0.0-10.0); HEMATOCRIT 37.7 % (42.0-52.0); HEMOGLOBIN 12.5 g/dL (14.0-18.0); IMM GRAN# 0.05 X1000 (0.0-0.04); IMM GRAN% 0.6 % (0.0-0.5); LYMPH# 1.19 X1000 (1.2-3.4); LYMPH% 13.6 % (20.5-51.1); MCH 32.4 PG (27-31); MCHC 33.2 g/dL (33-37); MCV 97.7 FL (81-99); MONO# 0.63 X1000 (0.11-0.59); MONO% 7.2 % (1.7-9.3); NEUT# 6.71 X1000 (1.4-6.5); NEUT% 76.3 % (42.2-75.2); PLT 186 X1000 (130-400); RBC 3.86 XMIL (4.7-6.1); RDW 16.3 % (11.5-14.5); WBC 8.78 X1000 (4.8-10.8)
[2018-08-25 06:49] LABS: AGAP 10; BUN 10 mg/dL (8-22); CALCIUM 8.8 mg/dL (8.8-10.2); CHLORIDE 107 mmol/L (98-107); COSMO 287; CREATININE 0.5 mg/dL (0.7-1.2); ESTIMATED GFR > 60; GLUCOSE 81 mg/dL (70-104); POTASSIUM 4.1 mmol/L (3.5-5.1); SODIUM 145 mmol/L (136-145); TCO2 28 mmol/L (25-35)
[2018-08-25] MEDS ORDERED: FOLIC ACID PO SCH (09:00)
[2018-08-25] MEDS ORDERED: VITAMIN D PO SCH (09:00)
[2018-08-25] MEDS ORDERED: ASPIRIN EC PO SCH (09:00)
[2018-08-25] MEDS ORDERED: CALTRATE 600 + D PO SCH (09:00)
[2018-08-25] MEDS ORDERED: LOPRESSOR PO SCH (09:00)
[2018-08-25] MEDS ORDERED: CYMBALTA PO SCH (09:00)
[2018-08-25] MEDS ORDERED: SINEMET CR 25/100 PO SCH (09:00)
[2018-08-25] MEDS: ASPIRIN EC PO SCH (09:11)
[2018-08-25] MEDS: FOLIC ACID PO SCH (09:14)
[2018-08-25] MEDS: LOPRESSOR PO SCH ×2 (09:14→21:11)
[2018-08-25] MEDS: VITAMIN D PO SCH (09:15)
[2018-08-25] MEDS: SINEMET CR 25/100 PO SCH ×3 (09:15→21:11)
[2018-08-25] MEDS: ALDACTONE PO SCH (09:18)
[2018-08-25] MEDS: CYMBALTA PO SCH (09:27)
[2018-08-25] MEDS: CULTURELLE FOR KIDS PO SCH ×3 (09:27→16:59)
--- NOTE | 2018-08-25 09:57 | PROGRESS NOTE ---
DATE: 08/25/2018 SUBJECTIVE: The patient was admitted yesterday. [facility] and he was found to be in atrial fibrillation with rapid ventricular response. Now, the Cardizem drip has been held because his heart rate has been reaching 50s. He is very sleepy this morning. According to nursing staff, he has been on restraints because he was pulling out the IV access and Watters catheter. OBJECTIVE: Vital Signs: Temperature 97.8 degrees, heart rate 62, respiratory rate 20, blood pressure 144/48, O2 saturation 98% on room air. General Examination: This is a chronically ill- appearing, demented 73-year-old male lying in bed, in no acute distress. HEENT: The patient has laceration in the right eyebrow and also in the occipital head noted at admission. There is a purple discoloration and hematoma in the right eye and over his right eyelid. Neck: No JVD noted. No carotid bruits. No lymphadenopathy. No thyromegaly. Cardiovascular: S1, S2 heard. Irregularly irregular. No murmurs, gallops, or rubs noted. Respiratory: Clear bilaterally to auscultation. No work of breathing or using accessory muscles. Abdomen: Soft, nontender to palpation. Bowel sounds present. No organomegaly. Extremities: No clubbing, cyanosis, or edema. Peripheral pulses present in both legs. Neurological: The patient is sleepy. Apparently he moves 4 extremities spontaneously. LABORATORY DATA: CBC and BMP is okay. ASSESSMENT AND PLAN: 1. Atrial fibrillation with rapid ventricular response. The heart rate is much better controlled so we have held the Cardizem drip. I think will start Cardizem 60 mg p.o. 8 hours. We are going to restart also Lopressor on this patient. Because patient is a little bit sleepy this morning we are going to crash dose medication we will continue to monitor this patient here in the intensive care unit. 2. Status post fall, aware. 3. Fecal impaction. When this patient is more awake we will provide his home medication that includes many stool softeners. 4. Subacute compression fracture. At this point, we are going to provide pain medications and also physical therapy has been consulted. DISPOSITION: At this point, I prefer to continue monitoring this patient here in the intensive care unit monitoring heart rate until that is well controlled without any IV medication we will transfer this patient to a regular room and from there, we can discharge him the next 24 to 48 hours. cc: Augie Wilson MD MTDD
[2018-08-25] MEDS: ATIVAN IV PRN (13:26)
--- NOTE | 2018-08-25 13:27 | ECHO REPORT ---
ORDER DATE: 08/25/2018 INDICATION: Atrial fibrillation with rapid ventricular response. FINDINGS: 1. Right atrium is mildly to moderately enlarged with a dimension of 4.9 cm. 2. Mild tricuspid regurgitation. RV systolic pressure of 31. 3. Normal RV systolic function with a dilated right ventricle. 4. Trace pulmonic insufficiency. 5. Mild to moderate left atrial enlargement with a dimension of 4.9 cm and a volume index of 34. 6. No mitral valve prolapse. Mild mitral regurgitation. No mitral stenosis. 7. Normal LV size, end-diastolic dimension of 4.7 cm. Normal wall thicknesses with a posterior and interventricular septal wall thickness of 1.1 and 1.0 cm respectively. Normal LV systolic function. Estimated EF of 60%. On some views, there is hypokinesis of the mid septal portion, but this is not reproduced on all images. 8. Aortic valve opens well. It is trileaflet. No evidence of stenosis or insufficiency. 9. The aorta appears normal in visualized segments. 10. No pericardial effusion is seen. cc: MD Karis Tran CRNP Cesar Garcia-Rodriguez, MD
[2018-08-25] MEDS: CARDIZEM PO SCH (18:06)
[2018-08-25] MEDS ORDERED: MILK OF MAGNESIA PO SCH (21:00)
[2018-08-25] MEDS ORDERED: DEPAKOTE SPRINKLE PO SCH (21:00)
[2018-08-25] MEDS: GEODON IM SCH (21:11)
[2018-08-25] MEDS: MIRALAX PO SCH (21:11)
[2018-08-25] MEDS: DEPAKOTE SPRINKLE PO SCH (21:11)
[2018-08-25] MEDS: STERILE WATER INJ. INJ PRN (21:12)
[2018-08-26] MEDS ORDERED: NS 500 ML IV ONE (01:54)
[2018-08-26] MEDS: NS 1,000 ML IV SCH ×2 (02:14→15:41)
[2018-08-26] MEDS: SINEMET CR 25/100 PO SCH ×3 (05:53→20:52)
[2018-08-26] MEDS ORDERED: ALDACTONE PO SCH (09:00)
[2018-08-26] MEDS: VITAMIN D PO SCH (10:06)
[2018-08-26] MEDS: CARDIZEM PO SCH ×3 (10:07→17:11)
[2018-08-26] MEDS: ASPIRIN EC PO SCH (10:07)
[2018-08-26] MEDS: CULTURELLE FOR KIDS PO SCH ×3 (10:07→17:11)
[2018-08-26] MEDS: FOLIC ACID PO SCH (10:07)
[2018-08-26] MEDS: CYMBALTA PO SCH (10:07)
[2018-08-26] MEDS: LOPRESSOR PO SCH ×2 (10:08→20:52)
--- NOTE | 2018-08-26 10:53 | PROGRESS NOTE ---
DATE: 08/26/2018 SUBJECTIVE: According to nursing staff, the patient has been calm, but is still requiring some restraints. Cardizem drip has been stopped yesterday, and currently he is on Cardizem p.o. No other issues noted as per nursing staff overnight. OBJECTIVE: Vitals: Temperature 97.5 degrees, heart rate 64, respiratory rate 18, blood pressure in 105/83, O2 saturation 99% on room air. General examination: This is a chronically ill appearing 73-year-old male, lying in bed, in no acute distress. HEENT: Patient has ulceration in the right eyebrow on the occipital head, with purple discoloration and hematoma in the right eye, too. Neck: No JVD noted. No carotid bruit. Cardiovascular: S1, S2 heard, irregularly irregular, but no murmurs, gallops, or rubs noted. Respiratory: Clear bilaterally to auscultation. No work of breathing or using accessory muscles. Abdomen: Soft. Nontender to palpation. Bowel sounds present. No organomegaly. Extremities: No clubbing, cyanosis, or edema. Peripheral pulses present in both legs. Neurological: Patient is awake, but confused. Demented. He moves 4 extremities spontaneously. LABORATORY DATA: There are no labs from today. From yesterday, CBC and BMP were okay. ASSESSMENT AND PLAN: 1. Atrial fibrillation with rapid ventricular response. Heart rate is much better controlled. He is not requiring Cardizem drip. He is using Cardizem 60 mg p.o. q.8 h. and Lopressor will be held if blood pressure continues to drop. We will continue with same management. 2. Status post fall. Aware. 3. Fecal impaction. We will continue with stool softeners. 4. Subacute compression fractures. We will continue with pain medications. 5. Advanced dementia. Patient is agitated still and requiring to be in restraints. That is the reason why we are going to keep this patient in the intensive care unit today. We will continue to monitor. cc: Augie Wilson MD MTDD
[2018-08-26] MEDS: DEPAKOTE SPRINKLE PO SCH (20:51)
[2018-08-26] MEDS: MILK OF MAGNESIA PO SCH (20:51)
[2018-08-26] MEDS: GEODON IM SCH (20:51)
[2018-08-26] MEDS: STERILE WATER INJ. INJ PRN (20:52)
[2018-08-27] MEDS: NS 1,000 ML IV SCH ×4 (01:29→20:34)
[2018-08-27] MEDS: SINEMET CR 25/100 PO SCH ×3 (05:55→21:00)
[2018-08-27 07:16] LABS: BASO# 0.03 X1000 (0.0-0.2); BASO% 0.3 % (0.0-0.8); HEMATOCRIT 36.6 % (42.0-52.0); HEMOGLOBIN 11.9 g/dL (14.0-18.0); IMM GRAN# 0.07 X1000 (0.0-0.04); IMM GRAN% 0.7 % (0.0-0.5); LYMPH# 0.97 X1000 (1.2-3.4); LYMPH% 9.5 % (20.5-51.1); MCHC 32.5 g/dL (33-37); MCV 98.4 FL (81-99); MONO# 0.73 X1000 (0.11-0.59); MONO% 7.1 % (1.7-9.3); MPV 12.4 FL (7.4-10.4); NEUT# 8.25 X1000 (1.4-6.5); NEUT% 80.4 % (42.2-75.2); PLT 180 X1000 (130-400); RBC 3.72 XMIL (4.7-6.1); WBC 10.25 X1000 (4.8-10.8)
[2018-08-27 07:26] LABS: AGAP 8; BUN 10 mg/dL (8-22); CALCIUM 8.1 mg/dL (8.8-10.2); CHLORIDE 109 mmol/L (98-107); COSMO 283; CREATININE 0.4 mg/dL (0.7-1.2); ESTIMATED GFR > 60; GLUCOSE 81 mg/dL (70-104); POTASSIUM 3.7 mmol/L (3.5-5.1); SODIUM 143 mmol/L (136-145); TCO2 26 mmol/L (25-35)
[2018-08-27] MEDS: VITAMIN D PO SCH (09:24)
[2018-08-27] MEDS: ASPIRIN EC PO SCH (09:24)
[2018-08-27] MEDS: FOLIC ACID PO SCH (09:24)
[2018-08-27] MEDS: CULTURELLE FOR KIDS PO SCH ×2 (09:24→14:17)
[2018-08-27] MEDS: LOPRESSOR PO SCH ×2 (09:24→21:00)
[2018-08-27] MEDS: CYMBALTA PO SCH (09:25)
[2018-08-27] MEDS: ALDACTONE PO SCH (09:52)
[2018-08-27] MEDS: CARDIZEM PO SCH (09:52)
--- NOTE | 2018-08-27 10:39 | PROGRESS NOTE ---
DATE: 08/27/2018 SUBJECTIVE: Patient is still requiring to be on restraints. The patient is tolerating Cardizem 60 mg p.o. every 8 hours well. OBJECTIVE: Vital Signs: Temperature 97.6 degrees, heart rate 90, respiratory rate 18, blood pressure 125/61, O2 saturation 100% on room air. General Examination: This is a chronically ill- appearing, 73-year-old male, lying in bed, in no acute distress. HEENT: The patient laceration on the right eyebrow and on occipital head with some purple discoloration and hematoma in the right eye too. Neck: No JVD noted. No carotid bruits. Cardiovascular: S1, S2 heard. Irregularly irregular. No murmurs, gallops, or rubs noted. Respiratory: Clear bilaterally to auscultation. No work of breathing or using accessory muscles. Abdomen: Soft. Nontender to palpation. Bowel sounds present. No organomegaly. Extremities: No clubbing, cyanosis or edema. Peripheral pulses present in both extremities. Neuro: Patient is awake continues to be confused. Demented. Moves 4 extremities but apparently, patient is on restraints now. LABORATORY DATA: Reviewed. ASSESSMENT AND PLAN: 1. Atrial fibrillation with rapid ventricular response. Rate continued to be well controlled. Patient able to take medications. At this point, we are going to stop Cardizem 60 mg p.o. 8 hours and will change for Cardizem CD 180 mg p.o. daily. Blood pressure is fine blood. Pressor will be held if blood pressure continues to drop. It is not this case though. At this point we will continue with the same management. 2. Status post fall aware. 3. Fecal impaction. Patient will continue with stool softeners. 4. Subacute compression fracture. We will continue with pain medication. 5. Advanced dementia. Patient continues to require to be on restraints. He needs to be off those for at least 48 hours in order to go back to his shelter. DISPOSITION: I think will keep this patient one more day to see he is more calmed down. cc: Augie Wilson MD
[2018-08-27] MEDS: CARDIZEM CD PO SCH (10:42)
[2018-08-27] MEDS: DEPAKOTE SPRINKLE PO SCH (21:00)
[2018-08-27] MEDS: MIRALAX PO SCH (21:00)
[2018-08-27] MEDS: STERILE WATER INJ. INJ PRN (21:35)
[2018-08-27] MEDS: GEODON IM SCH (21:35)
[2018-08-28 07:37] LABS: BASO# 0.07 X1000 (0.0-0.2); BASO% 1.3 % (0.0-0.8); EOS# 0.21 X1000 (0.0-0.7); HEMATOCRIT 36.5 % (42.0-52.0); IMM GRAN# 0.05 X1000 (0.0-0.04); LYMPH% 22.9 % (20.5-51.1); MCH 32.3 PG (27-31); MCHC 32.9 g/dL (33-37); MCV 98.1 FL (81-99); MONO# 0.48 X1000 (0.11-0.59); MONO% 9.2 % (1.7-9.3); MPV 12.4 FL (7.4-10.4); NEUT# 3.23 X1000 (1.4-6.5); NEUT% 61.6 % (42.2-75.2); PLT 200 X1000 (130-400); RBC 3.72 XMIL (4.7-6.1); RDW 16.1 % (11.5-14.5); WBC 5.24 X1000 (4.8-10.8)
[2018-08-28 07:54] LABS: AGAP 8; BUN 9 mg/dL (8-22); CALCIUM 8.1 mg/dL (8.8-10.2); CHLORIDE 109 mmol/L (98-107); COSMO 282; CREATININE 0.4 mg/dL (0.7-1.2); ESTIMATED GFR > 60; GLUCOSE 72 mg/dL (70-104); POTASSIUM 3.9 mmol/L (3.5-5.1); SODIUM 143 mmol/L (136-145); TCO2 26 mmol/L (25-35)
[2018-08-28] MEDS: CULTURELLE FOR KIDS PO SCH ×4 (09:19→17:00)
[2018-08-28] MEDS: ASPIRIN EC PO SCH (09:20)
[2018-08-28] MEDS: FOLIC ACID PO SCH (09:20)
[2018-08-28] MEDS: CYMBALTA PO SCH (09:20)
[2018-08-28] MEDS: VITAMIN D PO SCH (09:20)
[2018-08-28] MEDS: SINEMET CR 25/100 PO SCH ×3 (09:25→20:13)
[2018-08-28] MEDS: CARDIZEM CD PO SCH (09:35)
[2018-08-28] MEDS: LOPRESSOR PO SCH ×2 (10:09→20:13)
--- NOTE | 2018-08-28 10:14 | PROGRESS NOTE ---
DATE: 08/28/2018 SUBJECTIVE: As per nursing staff, the patient has been off of restraints for the last 24 hours. He is on Cardizem CD now. No acute issues noted. OBJECTIVE: Vital signs: Temperature 98.2, heart rate 62, respiratory rate 14, blood pressure 109/53, O2 saturation 100% on room air. General: This is a chronically ill-appearing 73-year-old man lying in bed, in no acute distress. HEENT: The patient has a laceration on the right eyebrow and the occipital head with some purple discoloration and hematoma of the right eye, too. Neck: No JVD noted. No carotid bruit. Cardiovascular: S1, S2 heard. Heart rate irregularly irregular. No murmurs, gallops or rubs noted. Respiratory: Clear bilaterally to auscultation. No work of breathing or using accessory muscles. Abdomen: Soft. Nontender to palpation. Bowel sounds present. No organomegaly. Extremities: No cyanosis, clubbing or edema. Peripheral pulses present in both legs. Neurologic: The patient is awake but continues to be confused. He answered basic questions today. Moves all 4 extremities spontaneously. DIAGNOSTIC DATA: Laboratory data reviewed. ASSESSMENT AND PLAN: 1. Atrial fibrillation with rapid ventricular response. Now, the patient is back to his home medications, in this case, Cardizem CD. He is requiring 180 mg p.o. daily. Heart rate is okay. Blood pressure is also fine. At this point, we will continue with the same management. 2. Status post fall. Aware. 3. Fecal impaction. We will continue with stool softeners. 4. Acute compression fracture. We will continue with pain medication. 5. Advanced dementia. The patient is finally off restraints for the last 24 hours. We will continue with Geodon at night. DISPOSITION: We will keep this patient in the hospital. If he is finally off of restraints for 24 more hours, I think on Thursday he will be discharged back to his rehab facility. cc: Augie Wilson MD
[2018-08-28] MEDS: NS 1,000 ML IV SCH ×2 (16:54→21:15)
[2018-08-28] MEDS: DEPAKOTE SPRINKLE PO SCH (20:12)
[2018-08-28] MEDS: GEODON IM SCH (22:13)
[2018-08-29] MEDS: NS 1,000 ML IV SCH ×2 (02:13→20:10)
[2018-08-29] MEDS: SINEMET CR 25/100 PO SCH ×3 (06:48→20:11)
[2018-08-29 07:32] LABS: BASO# 0.01 X1000 (0.0-0.2); BASO% 0.2 % (0.0-0.8); EOS# 0.26 X1000 (0.0-0.7); EOS% 4.4 % (0.0-10.0); HEMATOCRIT 34.1 % (42.0-52.0); HEMOGLOBIN 11.2 g/dL (14.0-18.0); IMM GRAN# 0.06 X1000 (0.0-0.04); LYMPH# 1.37 X1000 (1.2-3.4); LYMPH% 23.4 % (20.5-51.1); MCH 31.9 PG (27-31); MCHC 32.8 g/dL (33-37); MCV 97.2 FL (81-99); MONO# 0.48 X1000 (0.11-0.59); MONO% 8.2 % (1.7-9.3); MPV 12.1 FL (7.4-10.4); NEUT# 3.68 X1000 (1.4-6.5); NEUT% 62.8 % (42.2-75.2); PLT 199 X1000 (130-400); RBC 3.51 XMIL (4.7-6.1); RDW 15.9 % (11.5-14.5); WBC 5.86 X1000 (4.8-10.8)
[2018-08-29 07:42] LABS: AGAP 9; BUN 9 mg/dL (8-22); CALCIUM 7.9 mg/dL (8.8-10.2); CHLORIDE 109 mmol/L (98-107); COSMO 281; CREATININE 0.4 mg/dL (0.7-1.2); ESTIMATED GFR > 60; GLUCOSE 79 mg/dL (70-104); POTASSIUM 3.9 mmol/L (3.5-5.1); SODIUM 142 mmol/L (136-145); TCO2 24 mmol/L (25-35)
[2018-08-29] MEDS: ALDACTONE PO SCH (09:28)
[2018-08-29] MEDS: FOLIC ACID PO SCH (09:29)
[2018-08-29] MEDS: ASPIRIN EC PO SCH (09:29)
[2018-08-29] MEDS: VITAMIN D PO SCH (09:30)
[2018-08-29] MEDS: LOPRESSOR PO SCH ×2 (09:30→20:11)
[2018-08-29] MEDS: CYMBALTA PO SCH (09:31)
[2018-08-29] MEDS: CULTURELLE FOR KIDS PO SCH ×3 (09:31→17:20)
[2018-08-29] MEDS: CARDIZEM CD PO SCH (09:32)
--- NOTE | 2018-08-29 09:49 | PROGRESS NOTE ---
DATE: 08/29/2018 SUBJECTIVE: As per nursing staff, patient has been off of restraints for last 48 hours. The patient tolerated Cardizem CD. Heart rate is well controlled. No other issues noted. OBJECTIVE: Vital Signs: Temperature 98.0 degrees, heart rate 70, respiratory 16, blood pressure 112/50, O2 saturation 97% on room air. General: This is a chronically ill- appearing and demented 73-year-old male, lying in bed, in no acute distress. HEENT: The patient has a laceration on the right eye brow, on the occipital head with some purple discoloration and hematoma in the right as well. Neck: No carotid bruits. No lymphadenopathy. Cardiovascular: S1, S2 heard. Irregularly irregular. No murmurs, gallops, or rubs noted. Respiratory: Clear bilaterally to auscultation. No work of breathing or using accessory muscles. Abdomen: Soft, nontender to palpation. Bowel sounds present. No organomegaly. Extremities: No clubbing, cyanosis, or edema. Peripheral pulses present in both legs. Neurological: The patient is awake. He is more talkative today. Answered basic questions. Moves 4 extremities. LABORATORY DATA: Reviewed. ASSESSMENT AND PLAN: 1. Atrial fibrillation with rapid ventricular response. That is actually the reason why this patient was admitted to the hospital, because [facility]. In the ER, he was found to be in atrial fibrillation. After a few days of Cardizem drip, we switched to Cardizem CD 180. His heart rate is well controlled. Even though his CHADS score is high, because of his dementia, he is not a candidate for anticoagulation. In my opinion, he needs to continue with aspirin 81 mg tablet p.o. daily. 2. Status post fall, aware. We may need to remove the stitches in 5 days from now. 3. Fecal impaction. Will continue with stool softeners. 4. Acute compression versus subacute compression fracture. We will continue with pain medication as needed. 5. Advanced dementia. The patient has been off restraints for the last 48 hours. Until tomorrow will be 73, so at that point, patient will be ready to [facility] back to his [facility]. cc: Augie Wilson MD [facility]
[2018-08-29] MEDS: DEPAKOTE SPRINKLE PO SCH (20:12)
[2018-08-29] MEDS: STERILE WATER INJ. INJ PRN (20:13)
[2018-08-29] MEDS: GEODON IM SCH (20:13)
[2018-08-30 07:27] LABS: BASO# 0.04 X1000 (0.0-0.2); BASO% 0.8 % (0.0-0.8); HEMATOCRIT 36.3 % (42.0-52.0); HEMOGLOBIN 11.8 g/dL (14.0-18.0); IMM GRAN# 0.11 X1000 (0.0-0.04); IMM GRAN% 2.2 % (0.0-0.5); LYMPH# 1.44 X1000 (1.2-3.4); LYMPH% 28.8 % (20.5-51.1); MCH 31.9 PG (27-31); MCHC 32.5 g/dL (33-37); MCV 98.1 FL (81-99); MONO# 0.52 X1000 (0.11-0.59); MONO% 10.4 % (1.7-9.3); MPV 12.1 FL (7.4-10.4); NEUT# 2.69 X1000 (1.4-6.5); NEUT% 53.8 % (42.2-75.2); PLT 196 X1000 (130-400); RDW 15.9 % (11.5-14.5)
[2018-08-30 07:52] LABS: AGAP 8; BUN 6 mg/dL (8-22); CALCIUM 8.2 mg/dL (8.8-10.2); CHLORIDE 112 mmol/L (98-107); COSMO 290; CREATININE 0.4 mg/dL (0.7-1.2); ESTIMATED GFR > 60; GLUCOSE 91 mg/dL (70-104); POTASSIUM 3.8 mmol/L (3.5-5.1); SODIUM 147 mmol/L (136-145); TCO2 27 mmol/L (25-35)
[2018-08-30] MEDS ORDERED: CARDIZEM CD PO SCH (09:00)
[2018-08-30] MEDS: ASPIRIN EC PO SCH (09:09)
[2018-08-30] MEDS: CYMBALTA PO SCH (09:09)
[2018-08-30] MEDS: FOLIC ACID PO SCH (09:09)
[2018-08-30] MEDS: SINEMET CR 25/100 PO SCH ×3 (09:09→21:36)
[2018-08-30] MEDS: CULTURELLE FOR KIDS PO SCH ×3 (09:09→17:17)
[2018-08-30] MEDS: VITAMIN D PO SCH (09:09)
[2018-08-30] MEDS: NS 1,000 ML IV SCH (09:09)
[2018-08-30] MEDS: CARDIZEM PO SCH ×2 (10:42→17:17)
[2018-08-30] MEDS: LOPRESSOR PO SCH ×2 (10:43→21:33)
[2018-08-30] MEDS: DEPAKOTE SPRINKLE PO SCH (21:36)
[2018-08-30] MEDS: MIRALAX PO SCH (21:36)
--- NOTE | 2018-08-31 00:33 | PROGRESS NOTE ---
DATE: 08/30/2018 SUBJECTIVE: THE Patient has no complaints. The staff notes that he has been calm and has been doing well. PHYSICAL EXAMINATION: Vital Signs: Reviewed. Temperature 98 degrees, pulse 54, respiratory rate 20, blood pressure is 78/38 to 94/41. General: The patient is in no current respiratory distress. He is lying in bed. HEENT: Normocephalic. Neck: Supple. Cardiovascular: Regular rate. No murmurs. Chest: Clear and nonlabored. Abdomen: Soft and nondistended. Extremities: No edema. Moves all extremities. ASSESSMENT: 1. Hypotension likely iatrogenically caused with Cardizem CD. 2. Bradycardia. 3. Recent atrial fibrillation. 4. Compression fracture likely subacute. 5. Advanced dementia. PLAN: We will continue the patient in the hospital. At this point we will stop his Cardizem CD and place him back on Cardizem 30 mg 3 times a day. We will follow blood pressures and heart rate. Further orders as needed. cc: Evans Larios MD
[2018-08-31] MEDS: CARDIZEM PO SCH ×3 (01:28→17:24)
[2018-08-31 05:08] LABS: HEMATOCRIT 35.7 % (42.0-52.0); HEMOGLOBIN 11.8 g/dL (14.0-18.0); MCHC 33.1 g/dL (33-37); MCV 96.7 FL (81-99); MPV 11.6 FL (7.4-10.4); RBC 3.69 XMIL (4.7-6.1); RDW 15.7 % (11.5-14.5); WBC 7.9 X1000 (4.8-10.8)
[2018-08-31 05:38] LABS: AGAP 10; ALBUMIN 3.2 g/dL (3.5-5.0); ALKALINE PHOSPHATASE 71 U/L (32-122); BUN 7 mg/dL (8-22); CALCIUM 7.9 mg/dL (8.8-10.2); CHLORIDE 106 mmol/L (98-107); COSMO 279; CREATININE 0.3 mg/dL (0.7-1.2); ESTIMATED GFR > 60; GLUCOSE 92 mg/dL (70-104); GOT 8 U/L (10-34); MAGNESIUM 1.6 mg/dL (1.5-2.7); POTASSIUM 3.6 mmol/L (3.5-5.1); SODIUM 141 mmol/L (136-145); TCO2 25 mmol/L (25-35); TOTAL PROTEIN 5.4 g/dL (6.3-8.3)
[2018-08-31 05:46] LABS: GPT < 5 U/L (10-44)
[2018-08-31] MEDS: SINEMET CR 25/100 PO SCH ×3 (05:53→20:02)
[2018-08-31] MEDS: ASPIRIN EC PO SCH (09:49)
[2018-08-31] MEDS: CULTURELLE FOR KIDS PO SCH ×3 (09:49→17:24)
[2018-08-31] MEDS: CYMBALTA PO SCH (09:49)
[2018-08-31] MEDS: VITAMIN D PO SCH (09:49)
[2018-08-31] MEDS: ALDACTONE PO SCH (09:49)
[2018-08-31] MEDS: FOLIC ACID PO SCH (09:49)
[2018-08-31] MEDS: LOPRESSOR PO SCH ×2 (10:53→20:02)
[2018-08-31] MEDS ORDERED: CARDIZEM 125 MG/D5W 125 MG/125 ML IVPB IV SCH (20:00)
[2018-08-31] MEDS: DEPAKOTE SPRINKLE PO SCH (20:02)
[2018-08-31] MEDS: MILK OF MAGNESIA PO SCH (20:04)
--- NOTE | 2018-08-31 23:28 | PROGRESS NOTE ---
DATE: 08/31/2018 SUBJECTIVE: The patient has no complaints. No family is in the room. Staff notes that he has been doing well. He has not had any issues with being combative or anxious recently. PHYSICAL EXAMINATION: Vital signs: Temperature 98.3, pulse 80s to 90s, respiratory 20, BP 140/63. General: The patient is awake. He is in no distress. HEENT: Normocephalic. Cardiovascular: Irregular rhythm, rate controlled. Chest: Clear and nonlabored. Abdomen: Soft, nondistended. Extremities: Moves all extremities. ASSESSMENT: 1. Atrial fibrillation. The patient has been rate controlled. He did have bradycardia as well as hypotension with blood pressure 78 to 90 systolic while he was on the Cardizem CD 180. This was stopped and changed to Cardizem 30 t.i.d. yesterday. He tolerated this very well. 2. Hypernatremia. Sodium is improved from 147 down to 141 after stopping the normal saline. 3. Acute compression fracture. 4. Advanced dementia. PLAN: Will move the patient to the floor as he has been stable. Continue Cardizem. Will follow. ADDENDUM: Late this evening, the patient went into rapid ventricular rate with a heart rate sustained in the 130s to 160s. Therefore, we will move him back to the ICU and place him on a Cardizem drip. Concerned about increasing his Cardizem as it has dropped his blood pressure, and we may try digoxin and see if this will help if he does not break this rhythm on his own. cc: Evans Larios MD
[2018-09-01] MEDS: CARDIZEM PO SCH ×3 (01:40→20:16)
[2018-09-01] MEDS: SINEMET CR 25/100 PO SCH ×3 (05:57→20:16)
[2018-09-01 08:15] LABS: AGAP 9; BUN 6 mg/dL (8-22); CALCIUM 8.4 mg/dL (8.8-10.2); CHLORIDE 106 mmol/L (98-107); COSMO 280; CREATININE 0.4 mg/dL (0.7-1.2); ESTIMATED GFR > 60; GLUCOSE 94 mg/dL (70-104); MAGNESIUM 1.7 mg/dL (1.5-2.7); POTASSIUM 3.8 mmol/L (3.5-5.1); SODIUM 142 mmol/L (136-145); TCO2 27 mmol/L (25-35)
[2018-09-01] MEDS: CYMBALTA PO SCH (08:57)
[2018-09-01] MEDS: ASPIRIN EC PO SCH (08:57)
[2018-09-01] MEDS: FOLIC ACID PO SCH (08:57)
[2018-09-01] MEDS: VITAMIN D PO SCH (08:57)
[2018-09-01] MEDS: CULTURELLE FOR KIDS PO SCH ×3 (08:57→16:47)
[2018-09-01] MEDS: LOPRESSOR PO SCH ×2 (08:58→20:16)
[2018-09-01] MEDS: DEPAKOTE SPRINKLE PO SCH (20:16)
[2018-09-01] MEDS: MIRALAX PO SCH (21:14)
--- NOTE | 2018-09-01 22:47 | PROGRESS NOTE ---
DATE: 09/01/2018 SUBJECTIVE: The patient has no complaints. States that he wants to go home. PHYSICAL EXAMINATION: Vital Signs: Reviewed. Temperature 98.6 degrees. Pulse current 76; however, last evening, standing in the 150s. Blood pressure 115/50. General: The patient currently is in no distress. He is awake and alert, but confused and disoriented. HEENT: Normocephalic. Neck: Supple. Cardiovascular: Irregular rhythm. Currently rate controlled. Chest: Clear, nonlabored. No wheezing. Abdomen: Soft, nondistended. Extremities: Moves all extremities. ASSESSMENT: 1. Atrial fibrillation with rapid ventricular response. We decreased the patient to Cardizem 30 t.i.d. and watched him for approximately 36 hours prior to moving him out of the ICU. Unfortunately, after moving out last night, several hours later, his heart rate became sustained in the 140s to 160s. Therefore, moved him back to the ICU and placed him on IV Cardizem for 4 to 6 hours, after which time his heart rate improved. Currently, he is stable. We will change him to Cardizem 60 t.i.d., and we will follow his blood pressures as well as his heart rates. 2. Advanced dementia. 3. Compression fracture. 4. Frequent falls. 5. Given his frequent falls and dementia, he is a very poor anticoagulation candidate. cc: Evans Larios MD
[2018-09-02] MEDS: ATIVAN IV PRN (00:40)
[2018-09-02] MEDS: SINEMET CR 25/100 PO SCH ×3 (06:21→21:38)
[2018-09-02] MEDS: CARDIZEM PO SCH ×3 (06:22→21:30)
[2018-09-02] MEDS: VITAMIN D PO SCH (09:51)
[2018-09-02] MEDS: CYMBALTA PO SCH (09:51)
[2018-09-02] MEDS: ASPIRIN EC PO SCH (09:51)
[2018-09-02] MEDS: FOLIC ACID PO SCH (09:51)
[2018-09-02] MEDS: CULTURELLE FOR KIDS PO SCH ×3 (09:52→17:09)
[2018-09-02] MEDS: ALDACTONE PO SCH (10:09)
--- NOTE | 2018-09-02 14:55 | PROGRESS NOTE ---
DATE: 09/02/2018 SUBJECTIVE: The patient has no complaints. Staff notes that his heart rate and blood pressure have both been stable overnight. Notes that he is doing well. He is calm. PHYSICAL EXAMINATION: Vital Signs: Temp 98, pulse 70s, respiratory rate 20, BP 139/54. General: The patient is in no distress. He is lying in bed. HEENT: Normocephalic, atraumatic. Neck: Supple. Cardiovascular: Irregular rhythm. Rate controlled. Chest: Clear, nonlabored. Abdomen: Soft, nondistended. Extremities: Moves all extremities. ASSESSMENT: 1. Nausea, appears resolved. 2. Atrial fibrillation, currently rate controlled. 3. Hypotension, improved with dropping the Cardizem CD. 4. Compression fracture. 5. Advanced dementia. PLAN: Will move him to the floor. Will continue Cardizem [address] this can be held if his blood pressure is low, and will follow. cc: Evans Larios MD
[2018-09-02] MEDS: DEPAKOTE SPRINKLE PO SCH (21:38)
[2018-09-02] MEDS: MILK OF MAGNESIA PO SCH (21:47)
[2018-09-03] MEDS: CARDIZEM PO SCH (04:53)
[2018-09-03] MEDS: SINEMET CR 25/100 PO SCH ×2 (05:04→12:39)
[2018-09-03] MEDS: CULTURELLE FOR KIDS PO SCH ×3 (08:39→17:15)
[2018-09-03] MEDS: FOLIC ACID PO SCH (08:39)
[2018-09-03] MEDS: VITAMIN D PO SCH (08:39)
[2018-09-03] MEDS: ASPIRIN EC PO SCH (08:39)
[2018-09-03] MEDS: CYMBALTA PO SCH (08:39)
--- NOTE | 2018-09-03 09:39 | DISCHARGE SUMMARY ---
ADMISSION DATE: 08/24/2018 DISCHARGE DATE: 09/03/2018 DISCHARGE DIAGNOSES: 1. Atrial fibrillation with rapid ventricular rate, currently rate controlled. 2. Advanced dementia. 3. Compression fracture, likely subacute. CONSULTATIONS: None. PROCEDURES: None. BRIEF HOSPITAL COURSE: The patient is a 73-year-old male who unfortunately has advanced dementia. He presented to the hospital. While in the hospital, he has had difficulty with rapid rate for his atrial fibrillation. He was placed on Cardizem drip. His heart rate improved. He was changed back to Cardizem CD 180, but unfortunately his heart rates dropped into the 50s and his blood pressure dropped into the 80s and low 90s. Therefore, his Cardizem was held to allow his blood pressure to go back up as expected. His heart rate also went back to a rapid rate. He was placed back on a Cardizem drip. At this time after control, he was changed to Cardizem 30 mg 3 times daily. His blood pressures tolerated it, but his heart rate did not. We did increase him to 60 t.i.d., and watched him for another 36 hours and his heart rates remained stable. DISPOSITION: Patient to be discharged to rehab. He will continue his medications as listed. No changes on his diet. He will continue with physical therapy as he does have frequent falls. Therefore, we will not place him on anticoagulation. He has just recently fallen and treated a compression fracture. He also has a laceration over his right eyebrow from his recent fall. Therefore, we will continue to hold his anticoagulation due to this. DISCHARGE MEDICATIONS: 1. Cardizem 60 mg 3 times daily. 2. Aldactone 25 every other day. TIME SPENT: Greater than 30 minutes were spent in total care. cc: Evans Larios MD
[2018-09-03] MEDS ORDERED: CARDIZEM PO SCH (13:00)
[2018-09-03 18:05] VITALS: BP 104/39
== END 2018-09-03 18:30 | DRG 309 ==
LOC: P.ED 09:22 → SUATTDRO 13:18 → P.ICU 13:18 → P.MEDSURG 08-31 11:56 → P.ICU 08-31 19:43 → P.MEDSURG 09-02 13:14
PROVIDERS: ATTEND Family Medicine
CPT/HCPCS: 51702; 70450; 71010; 71045; 72125; 72128; 72131; 73562; 80048; 80053; 81001; 83735; 84484; 85025; 85027; 90471; 90714; 93005; 93306; 94761; 96365; 96366; 97110; 97162; 97166; 97530; 99285; 99291; A9270; J2060; J3486; J7030; J7040